=== PATIENT | male | born 1980 | race Caucasian/White ===

== ENCOUNTER 2025-01-08 09:40 | Inpatient (IN) | payer OTHER, SELFPAY ==
--- NOTE | ~2025-01-08 | XR_ITS ---
EXAMINATION: XR abdomen gastric tube insert DATE: 01/09/2025 09:59 INDICATION: Nasogastric tube placement TECHNIQUE: A supine view of the abdomen and lower chest was obtained for evaluation of feeding tube placement. COMPARISON: None. FINDINGS: Nasogastric tube tip in proximal side port in the body the stomach. Visualized portion of the lungs a re clear. Heart size is normal. IMPRESSION: 1. No gastric tube in stomach. Reviewed, dictated and finalized at location A.
--- NOTE | ~2025-01-08 | CT_ITS ---
CT abdomen pelvis w con Ordering provider: Makenna Ray MD History: 44 years Male with . LLQ pain, n/v . Comparison: September 21, 2009 Technique: CT abdomen and pelvis with IV and without oral contrast. Automated exposure control and it erative reconstruction technique were employed. The dose-length product was 353.79 mGy-cm. 100 mL Omn ipaque 350 was given IV. Findings: VISUALIZED LOWER CHEST: Normal. UPPER ABDOMINAL ORGANS: Liver: Fat infiltration. Hepatomegaly. Gallbladder: Normal. Spleen: Normal. Stomach/duodenum: Normal. Pancreas: Normal. Adrenals: Surrounding fat stranding is seen around the body and tail of the pancreas with fluid in th e left paracolic gutter. Kidneys: Normal. PELVIC ORGANS: The bladder is underfilled with thickened wall. Evaluation for cystitis advised. BOWEL AND MESENTERY: Colon: No definite evidence of diverticulitis. No evidence of appendicitis.. Small Bowel: Slightly dilated jejunal loops.. No definite obstruction. Peritoneum/mesentery: No free air. Minimal free fluid seen in the area of the tail of the pancreas, l eft paracolic gutter and around the spleen. No mesenteric lymphadenopathy. RETROPERITONEUM: Mild atheromatous disease of the abdominal aorta. No retroperitoneal lymphadenopat hy. MUSCULOSKELETAL: Superficial soft tissues: The superficial soft tissues are normal. Bones: Age appropriate degenerative changes of the spine. Left sacroiliitis. IMPRESSION: 1. Pancreatitis involving the body and tail of the pancreas. Surrounding fat stranding and minimal f luid is noted. 2. Slightly dilated jejunal loops. Follow-up advised. 3. No evidence of appendicitis or diverticulitis. 4. Fat infiltration of the liver. Hepatomegaly. Reviewed, dictated and finalized at location A. IMPRESSION: 1. Pancreatitis involving the body and tail of the pancreas. Surrounding fat s tranding and minimal fluid is noted. 2. Slightly dilated jejunal loops. Follow-up advised. 3. No evidence of appendicitis or diverticulitis. 4. Fat infiltration of the liver. Hepatomegaly.
--- NOTE | ~2025-01-08 | US_ITS ---
Limited Abdominal Sonogram: Real-time sonographic imaging of the right upper quadrant was performed. Clinical History: Abnormal LFTs, history of hemachromatosis Findings: The liver appears normal with no evidence of mass lesion or bile duct dilatation. Liver me asures 21.2 cm in length. Main portal vein demonstrates normal direction of flow. The gallbladder is well distended, and appears normal with no evidence of gallstone or wall thickening. The common bile duct measures 6 mm. The visualized pancreas, aorta, and IVC are unremarkable. Right kidney unremarka ble. Impression: Hepatomegaly. Reviewed, dictated and finalized at location . Impression: Hepatomegaly.
[2025-01-08 09:44] VITALS: BP 148/105; PULSE 85; RESP 18; TEMP 36.7; O2SAT 100
[2025-01-08 10:11] LABS: Basophils Percent Auto 0.1 % (0.2-1.2); Hematocrit 47.2 % (42.0-52.0); Hemoglobin 17.2 g/dL (14.0-18.0); Immature Granulocyte Absolute 0.04 K/mm3 (0.00-0.031); Immature Granulocyte Percent A 0.5 % (0-0.5); Lymphocytes Absolute Auto 0.82 K/mm3 (0.9-3.2); Lymphocytes Percent Auto 9.8 % (18.3-44.2); Mean Corpuscular HGB Conc 36.4 g/dl (32-36); Mean Corpuscular Hemoglobin 33.8 pg (26-34); Mean Corpuscular Volume 92.7 fl (80-100); Mean Platelet Volume 10.6 fl (7.4-10.4); Monocytes Absolute Auto 0.5 K/mm3 (0.1-0.6); Monocytes Percent Auto 5.4 % (2.6-8.5); Neutrophils Percent Auto 84.2 % (45.5-73.1); Red Blood Count 5.09 M/mm3 (4.6-6.20); Red Cell Distribution Width 12.7 % (11.5-14.5); White Blood Count 8.4 K/mm3 (4.5-10.0)
[2025-01-08 10:14] LABS: Platelet Count Result 122 k/mm3 (150-375)
[2025-01-08 10:21] LABS: Add Urine Microscopic? YES; Appearance Urine Clear (Clear); Bacteria Urine None Seen /hpf; Bilirubin Urine 2+ (Negative); Blood Urine Negative (Negative); Color Urine Orange (Yellow); Glucose Urine UA Negative (Negative); Ketones Urine 1+ mg/dL (Negative); Leukocyte Esterase Ur 1+ LEU/UL (Negative); Nitrate Urine Positive (Negative); Protein Urine 1+ mg/dL (Negative); RBC Urine 0-2 /hpf (0-2); Specific Grav Ur 1.017 (1.001-1.035); Squamous Epithelial Cell Urine Occasional /hpf (Few); WBC Urine 0-5 /hpf (0-3); pH Urine 6.5 (5.0-9.0)
[2025-01-08] MEDS: MORPHINE SULFATE (*CRX) 4 MG/ML INJ IV PUSH ×5 (10:25→21:08)
[2025-01-08] MEDS: ONDANSETRON INJ 4 MG/2 ML VIAL IV PUSH ×2 (10:25→14:05)
[2025-01-08] MEDS: LACTATED RINGERS 1,000 ML 999 ML IV CONT (10:26)
[2025-01-08] MEDS: PANTOPRAZOLE SODIUM IV 40 MG VIAL IV PUSH (10:26)
[2025-01-08 10:39] LABS: Alanine Aminotransferase 398 U/L (6-50); Albumin Level 3.8 g/dL (3.5-5.1); Blood Urea Nitrogen 7 mg/dL (9-20); Chloride 99 mmol/L (98-107); Estimated CRCL calculation 96 ml/min; Estimated Glomerular Filt Rate > 60; Glucose 125 mg/dL (65-110); Lipase 867 U/L (23-300); Potassium 3.2 mmol/L (3.4-5.0); Total Protein 7.8 g/dL (6.3-8.2)
[2025-01-08 10:40] LABS: Alkaline Phosphatase 138 U/L (38-126); Anion Gap 13 mmol/L (4-12); Bilirubin,Total 5.3 mg/dL (0.2-1.3); Calcium 8.2 mg/dL (8.4-10.2); Carbon Dioxide 19 mmol/L (22-30); Sodium 131 mmol/L (137-145)
[2025-01-08 11:19] LABS: Aspartate Amino Transferase 1076 U/L (17-59)
[2025-01-08] MEDS: POTASSIUM CHLORIDE 20 MEQ PACKET (FOR LIQUID) 40 MEQ PO (12:06)
[2025-01-08 12:46] VITALS: BP 158/111; PULSE 54; RESP 18; O2SAT 100
--- NOTE | 2025-01-08 13:29 | ED_ITS ---
HPI - Nausea/Vomiting/Diarrhea General Chief complaint: Nausea/Vomiting/Diarrhea Stated complaint: sick since saturday nv Time Seen by Provider: 01/08/25 09:43 History of Present Illness HPI Narrative: Under last few days patient has feeling under the weather, then started becoming nauseous, and then started having epigastric/left-sided abdominal pain. Does have history of hemochromatosis, as well as heavy alcohol use, drinking a pt daily, last drink was Saturday, does not go into withdrawal. Related Data Allergies Allergy/AdvReac Type Severity Reaction Status Date / Time No Known Allergies Allergy Verified 01/08/25 10:53 Review of Systems 2 Review of Systems: All systems reviewed & are unremarkable except as noted in HPI and below Exam 2 Narrative: EXAMINATION OF ORGAN SYSTEMS/BODY AREAS: Constitutional: Vital signs per nursing GENERAL:[No acute distress, non-toxic appearing.] HEAD: Normal with no signs of head trauma. EYES: EOMI, conjunctiva normal ENT: Hearing grossly intact LUNGS: Nonlabored breathing. HEART: [Regular rate and rhythm] ABD: [Soft], some tenderness palpation epigastric/left abdomen EXT: Normal range of motion SKIN: [No rashes or lesions.] NEURO: [Alert and oriented x 3. No gross focal sensory or strength deficits.] PSYCH: Normal affect Course Vital Signs Vital signs: Vital Signs Temperature 98.0 F 01/08/25 09:44 Pulse Rate 85 01/08/25 09:44 Respiratory Rate 18 01/08/25 09:44 Blood Pressure 148/105 H 01/08/25 09:44 Pulse Oximetry 100 01/08/25 09:44 Oxygen Delivery Room Air 01/08/25 09:44 Temperature 98.0 F 01/08/25 09:44 Pulse Rate 54 L 01/08/25 12:46 Respiratory Rate 18 01/08/25 12:46 Blood Pressure 158/111 H 01/08/25 12:46 Pulse Oximetry 100 01/08/25 12:46 Oxygen Delivery Room Air 01/08/25 09:44 MDM - Nausea/Vomiting/Diarrhea MDM Narrative Medical decision making narrative: Electronic medical record was reviewed. Patient presented to the ED with complaint of [abdominal pain worse on the left side and vomiting]. Vitals [were within acceptable limits]. Physical exam revealed and tenderness epigastric abdomen. Based on the patient's history and physical exam, my differential includes but is not limited to [gastritis, gastroenteritis, cholecystitis, pancreatitis, diverticulitis]. [IV access was established by nursing staff. Patient was given zofran, Protonix, morphine]. CBC, BMP, lipase, LFTs, bilirubin and alk phos were obtained. Labs were pertinent for lipase 867, AST 1076, ALT 398, bili 5.3, discussed with patient he tells me that his LFTs are generally elevated from the alcohol use. [Decision was made to obtain a CT-abdomen to evaluate for acute abdominal process. CT- abdomen per radiology interpretation showing pancreatitis.] Fatty liver findings on the CT and ultrasound. Discussed with patient, he is still having some abdominal pain and preferred to be admitted, discussed with hospitalist who would like to have GI consult, discussed with Dr. Moya who was agreeable to consult on patient as needed and agrees most likely alcoholic pancreatitis. Lab Data 01/08/25 09:56 01/08/25 09:56 Labs: Lab Results 01/08/25 Range/Units 09:56 WBC 8.4 (4.5-10.0) K/mm3 RBC 5.09 (4.6-6.20) M/mm3 Hgb 17.2 (14.0-18.0) g/dL Hct 47.2 (42.0-52.0) % MCV 92.7 (80-100) fl MCH 33.8 (26-34) pg MCHC 36.4 H (32-36) g/dl RDW 12.7 (11.5-14.5) % Plt Count 122 L (150-375) k/mm3 MPV 10.6 H (7.4-10.4) fl Immature Gran % (Auto) 0.5 (0-0.5) % Neut % (Auto) 84.2 H (45.5-73.1) % Lymph % (Auto) 9.8 L (18.3-44.2) % Villalba % (Auto) 5.4 (2.6-8.5) % Eos % (Auto) 0.0 (0-4.4) % Baso % (Auto) 0.1 L (0.2-1.2) % Lymph # (Auto) 0.82 L (0.9-3.2) K/mm3 Villalba # (Auto) 0.5 (0.1-0.6) K/mm3 Eos # (Auto) 0.0 (0-0.3) K/mm3 Baso # (Auto) 0.0 (0.0-0.1) K/mm3 Abs Immat Gran (auto) 0.04 H (0.00-0.031) K/mm3 Absolute Neuts (auto) 7.0 H (1.3-6.7) K/mm3 Absolute Nucleated RBC 0.000 (0.0-0.012) K/mm3 Nucleated RBC % 0.0 (0.0-0.2) % % Immature Plt Fraction 8.0 (0.9-11.2) % Sodium 131 L (137-145) mmol/L Potassium 3.2 L (3.4-5.0) mmol/L Chloride 99 (98-107) mmol/L Carbon Dioxide 19 L (22-30) mmol/L Anion Gap 13 H (4-12) mmol/L BUN 7 L (9-20) mg/dL Creatinine 0.90 (0.7-1.3) mg/dL Estim Creat Clear Calc 96 ml/min Estimated GFR > 60 (59 - ) Glucose 125 H (65-110) mg/dL Calcium 8.2 L (8.4-10.2) mg/dL Total Bilirubin 5.3 H (0.2-1.3) mg/dL AST 1076 H (17-59) U/L ALT 398 H (6-50) U/L Alkaline Phosphatase 138 H (38-126) U/L Total Protein 7.8 (6.3-8.2) g/dL Albumin 3.8 (3.5-5.1) g/dL Lipase 867 H (23-300) U/L Urine Color [place] H (Yellow) Urine Appearance Clear (Clear) Urine pH 6.5 (5.0-9.0) Ur Specific St[place] 1.017 (1.001-1.035) Urine Protein 1+ H (Negative) mg/dL Urine Glucose (UA) Negative (Negative) mg/dL Urine Ketones 1+ H (Negative) mg/dL Ur Blood (Man) Negative (Negative) Urine Nitrate Positive H (Negative) Urine Bilirubin 2+ H (Negative) Urine Urobilinogen 2.0 H (<2.0) mg/dL Leukocyte Esterase Rfl 1+ H (Negative) ALEXIS/UL Urine RBC 0-2 (0-2) /hpf Urine WBC 0-5 (0-3) /hpf Ur Squamous Epith Cells Occasional (Few) /hpf Urine Bacteria None seen /hpf Urine Casts 3-5 Discharge Plan Discharge Clinical Impression: Acute alcoholic pancreatitis, Abnormal LFTs Patient Disposition: Still a Patient Condition: Serious Patient Language: Nauruan Follow-up/Referrals: Blayne,MD Garrett [Primary Care Provider] -
[2025-01-08 13:50] LABS: INR 0.8; Prothrombin Time 11.3 Seconds (11.1-14.7)
[2025-01-08 13:51] LABS: Partial Thromboplastin Time 32.9 Seconds (22.3-36.8)
[2025-01-08] MEDS: LACTATED RINGERS 1,000 ML 125 ML IV CONT (14:06)
[2025-01-08 14:11] VITALS: BP 150/109; PULSE 83; RESP 16; O2SAT 97
--- NOTE | 2025-01-08 14:18 | P.HP_ITS ---
H&P: HPI History of Present Illness Date/Time: 01/08/25 14:18 Chief Complaint: Abd pain Narrative: 44 yo male with PMH of HTN, GERD and alcohol abuse who presented to the ER on account of abd pain. Described as sharp upper abdominal region, 10/10 intensity, no radiation but associated with profuse vomiting the past 3 days. Noted lightheadedness but denies any Chest pain, SOB, dysuria, and LOC. Er eval notable for BP 148/105, labs notable for AST 1076, ALT 398, Bili 5.3, and Lipase 867, CT AP showed pancreatitis involving the body and tail of the pancreas and fat infiltrationi of the liver. INR 0.8. GI was consulted prior to admission Review of Systems Review of Systems: All other systems were reviewed and negative except as noted in the HPI above Meds Home Medications and Allergies Home Medications ?Medication ?Instructions ?Recorded ?Confirmed ?Type carvedilol 12.5 mg tablet 12.5 mg PO Q12H 01/08/25 01/08/25 History omeprazole magnesium 20 mg 20 mg PO ONCE PRN acid reflux 01/08/25 01/08/25 History capsule,delayed release (Acid Graphic User Interface Designer (omeprazole)) Allergies Allergy/AdvReac Type Severity Reaction Status Date / Time No Known Allergies Allergy Verified 01/08/25 13:58 Vital Signs Vital Signs - 24 hr 01/08/25 09:44 01/08/25 12:46 01/08/25 14:11 Temperature 98.0 F Pulse Rate 85 54 L 83 Respiratory Rate 18 18 16 Blood Pressure 148/105 H 158/111 H 150/109 H Pulse Oximetry 100 100 97 Oxygen Delivery Room Air Exam Narrative: General: alert and comfortable Eyes: EOMI, PERRLA ENNT External ears normal, Neck is supple, no masses, Respiratory systems: Clear to auscultation Cardiovascular S1, S2, normal rhythm, no murmur, rub, or gallop; no thrill or palpable murmurs on palpation. Gastrointestinal: soft, tenderness in epigastric, RUQ and LUQ, and non-distended abdomen with no masses; BS present Skin: no rash, lesions, ulcerations, subcutaneous nodules or induration Musculoskeletal: no abnormality and no tenderness, normal ROM Neurologic: Alert and oriented x3, non focal Mental Status Exam: normal affect H&P: Results Labs Labs: Short CBC 01/08/25 Range/Units 09:56 WBC 8.4 (4.5-10.0) K/mm3 Hgb 17.2 (14.0-18.0) g/dL Hct 47.2 (42.0-52.0) % Plt Count 122 L (150-375) k/mm3 BMP 01/08/25 09:56 Sodium 131 L Potassium 3.2 L Chloride 99 Carbon Dioxide 19 L BUN 7 L Creatinine 0.90 Glucose 125 H Calcium 8.2 L Liver Function 01/08/25 Range/Units 09:56 Total Bilirubin 5.3 H (0.2-1.3) mg/dL AST 1076 H (17-59) U/L ALT 398 H (6-50) U/L Alkaline Phosphatase 138 H (38-126) U/L Albumin 3.8 (3.5-5.1) g/dL Urine 01/08/25 Range/Units 09:56 Urine Color [place] H (Yellow) Urine Appearance Clear (Clear) Urine pH 6.5 (5.0-9.0) Ur Specific [place] 1.017 (1.001-1.035) Urine Protein 1+ H (Negative) mg/dL Urine Glucose (UA) Negative (Negative) mg/dL Assessment and Plan Assessment and plan (1) Acute alcoholic pancreatitis: Code(s): K85.20 - Alcohol induced acute pancreatitis without necrosis or infection Status: Acute (2) Abnormal LFTs: Code(s): R79.89 - Other specified abnormal findings of blood chemistry Status: Acute Plan Acute pancreatitis likely from alcohol abuse Presented with abd pain and vomiting Lipase 867 CT AP showed pancreatitis, fatty liver no CBD dilation US liver showed hepatomegaly Lipid pnael pending Continue PRN pain control NPO, IVF and monitor Alcoholic hepatitis patient noted he drinks updwards of 6 drinks every day and last alcohol drink was 5 days ago AST 1076, and ALT 398, bili 5.3 Maddrey discriminant score less than 30 continue IVF, avoid tylenol and monitor Alcohol abuse LAD 5 days ago encourage to quit alcohol monitor Hypertension with elevated blood pressure On Coreg PRN hydralazinie Adjust with clinical course GERD continue protonix DVT prophylaxis on Sq Lovenox Full code SDM: Titi Streeter Hospitalist MIPS Advance Care Plan I have confirmed that the patient's Advanced Care Plan is present, code status is documented, or surrogate decision maker is listed in patient medical record.: Yes Medication Reconciliation I have utilized all available resources to obtain, update and review the patients current medications (includes all prescriptions, OTC, herbals, cannabis, and nutritional supplements).: Yes
[2025-01-08 14:31] VITALS: BMI 24.9
--- NOTE | 2025-01-08 14:40 | ADMGEN ---
This patient, Yusuf Taylor, was admitted to Medical Room 246-. Patient/family oriented to hospital policies and general routines including ID bracelet, bed and alarms, visiting hours, pain management, procedures, bathroom and other care routines, personal items, smoking policy, room service/diet, and visiting hours. Information on how to activate the Rapid Response Team has been discussed. Patient/Family are encouraged to report perceived risks to care and to ask questions if they do not understand what they are told or what they should do.
[2025-01-08 15:00] VITALS: BP 143/100; PULSE 78; RESP 20; TEMP 36.9; O2SAT 98
[2025-01-08] MEDS: THIAMINE HCL INJ 100 MG, FOLIC ACID INJ 1 MG, MAGNESIUM SULFATE INJ 1 GM, MULTIVITAMINS... IV CONT (16:24)
[2025-01-08 21:00] VITALS: BP 146/98; PULSE 88; RESP 20; TEMP 36.9; O2SAT 98
[2025-01-08 21:09] VITALS: PULSE 88
[2025-01-08] MEDS: carvediloL 12.5 MG TABLET PO (21:09)
[2025-01-09] VITALS (28 sets, daily range): BP systolic 94–146; BP diastolic 72–104; PULSE 71–114; RESP 13–24; TEMP 37.1–38.9; O2SAT 94–99
[2025-01-09] MEDS: MORPHINE SULFATE (*CRX) 4 MG/ML INJ IV PUSH ×5 (00:02→21:03)
[2025-01-09] MEDS: NICOTINE (*PBKC) 14 MG PATCH 1 PATCH TRANSDERM ×2 (00:08→09:26)
[2025-01-09] MEDS: SODIUM CHLORIDE 0.9% IV 1,000 ML 75 ML IV CONT (02:21)
[2025-01-09 06:03] LABS: Basophils Percent Auto 0.2 % (0.2-1.2); Eosinophils Percent Auto 0.3 % (0-4.4); Hematocrit 41.8 % (42.0-52.0); Hemoglobin 14.7 g/dL (14.0-18.0); Immature Granulocyte Absolute 0.06 K/mm3 (0.00-0.031); Immature Granulocyte Percent A 0.6 % (0-0.5); Immature Platelet Fraction Pct 10.6 % (0.9-11.2); Lymphocytes Percent Auto 15.1 % (18.3-44.2); Mean Corpuscular HGB Conc 35.2 g/dl (32-36); Mean Corpuscular Hemoglobin 34.3 pg (26-34); Mean Corpuscular Volume 97.7 fl (80-100); Mean Platelet Volume 11.5 fl (7.4-10.4); Monocytes Absolute Auto 0.7 K/mm3 (0.1-0.6); Monocytes Percent Auto 6.4 % (2.6-8.5); Neutrophils Absolute Auto 8.2 K/mm3 (1.3-6.7); Neutrophils Percent Auto 77.4 % (45.5-73.1); Platelet Count Result 80 k/mm3 (150-375); Red Blood Count 4.28 M/mm3 (4.6-6.20); Red Cell Distribution Width 13.2 % (11.5-14.5); White Blood Count 10.6 K/mm3 (4.5-10.0)
[2025-01-09 06:18] LABS: Alanine Aminotransferase 228 U/L (6-50); Albumin Level 3.4 g/dL (3.5-5.1); Alkaline Phosphatase 101 U/L (38-126); Anion Gap 9 mmol/L (4-12); Aspartate Amino Transferase 389 U/L (17-59); Bilirubin,Total 3.5 mg/dL (0.2-1.3); Blood Urea Nitrogen 7 mg/dL (9-20); Calcium 7.7 mg/dL (8.4-10.2); Carbon Dioxide 28 mmol/L (22-30); Chloride 98 mmol/L (98-107); Cholesterol 113 mg/dL (0-200); Estimated CRCL calculation 81 ml/min; Estimated Glomerular Filt Rate > 60; Glucose 92 mg/dL (65-110); HDL Direct 17 mg/dL; Magnesium 1.4 mg/dL (1.6-2.3); Sodium 135 mmol/L (137-145); Total Protein 6.9 g/dL (6.3-8.2); Triglycerides 366 mg/dL (<150)
[2025-01-09 06:25] LABS: LDL Cholesterol Direct 33 mg/dL
[2025-01-09] MEDS: LORazepam INJ (*CRX) 2 MG/ML VIAL (06:40)
[2025-01-09] MEDS: diazePAM INJ (*CRX) 10 MG/2 ML SYRINGE ×2 (06:46→06:50)
[2025-01-09] MEDS: PHENobarbitaL sodium (*CRX) 130 MG/ML VIAL 250 MG IV PUSH (07:13)
--- NOTE | 2025-01-09 07:26 | PC.NURSE ---
Addendum entered by Dar Ybarra RN 01/09/25 07:33: Pt stated last ETOH use Saturday night, no CIWA or seizure precautions ordered. Pt did not exhibit any S/S of withdrawal prior to onset of seizure. Original Note: Pt (Bibi) called out for help, Pt found with head at feet of bed actively seizing. Rapid Response initiated, pt positioned on left lateral side and nasal canula initiated, Dr Zacarias and critical response team arrived at bedside after about 1-2min. Pt stabilized and transferred to ICU-2
[2025-01-09] MEDS: PHENOBARBITAL SODIUM IVPB (07:37)
[2025-01-09] MEDS: SODIUM CHLORIDE 0.9% IVPB (07:37)
[2025-01-09 07:42] LABS: Glucose Point of Care 155 mg/dl (65-105)
--- NOTE | 2025-01-09 08:22 | P.RRN_ITS ---
Critical Care Event Note Summary Code activated: No Narrative: Rapid response was called this before shift change. Patient's had been in the room with the patient. The patient started having tonic clonic seizure. The patient does not have a history of seizures. Patient evidently drinks alcohol heavily. His was at bedside reported that the patient had his last alcoholic beverage on the . He started having nausea vomiting on the . It took until the before it his could convince him to go to the ER for evaluation. The patient was diagnosed with alcoholic pancreatitis receive 1 L of fluid bolus and was placed on maintenance fluids at 125 mL an hour. The patient received thiamin and folic acid. He was also noted to have an ileus. He was admitted for pain management. And placed on stress ulcer prophylaxis. Some hypokalemia which was treated with oral supplements. The patient had tonic clonic seizure that lasted a couple of minutes. When I arrived at bedside patient had stopped seizing within seconds of me arriving to the room. The patient was lying with his had a head at the foot of the bed. Nursing staff had the patient on his left side. Patient was drooling from the corner of his mouth. He had evidence of tongue trauma with bleeding from the left side of his tongue, he had incontinence of urine. The patient was repositioned in bed and patient was having erratic respirations and did not seem to be protecting his airway. However as were repairing for intubation the patient woke up but was postictal and combative. During the process of trying to administer Ativan the patient's IV was dislodged. Subsequently the patient was placed in four-point restraints and IM diazepam was ordered. The patient required 20 mg of IM diazepam total while he was waiting for Dilantin bolus to arrive from the pharmacy. Patient initially got 250 mg of Dilantin due to fast availability and subsequently an additional 500 mg was ordered for a total bolus of 10 milligram/kilogram dose. The patient was hot to touch and diaphoretic. A Flower catheter was placed due to his critical condition and immobility. Standard UA after catheter placement did demonstrate UTI. Shortly after arriving to the ICU patient was noted to be febrile with a temperature of 100.5. Subsequently a stat blood cultures lactic acid procalcitonin were ordered. Patient was placed on empiric antibiotic therapy with Zosyn. Patient met sepsis criteria with t achycardia, leukocytosis and fever. Assessment: Acute seizure--likely multifactorial due to alcohol withdrawal and combination of lower his seizure threshold with fever due to sepsis and UTI. Patient was treated with IM volume 20 mg total and phenobarbital load. Patient was transferred to the ICU. Care has been handed over to sociocultural anthropology professor. UTI with sepsis--blood cultures and urine cultures have been ordered. Empiric antibiotic therapy with Zosyn. Fluid bolus 30 mL/kilogram isotonic fluids. Will start patient on maintenance IV fluids at 100 50 mL an hour. Continue stress ulcer prophylaxis Hypo magnesemia---4 g magnesium sulfate rider 80 minutes This case had a high probability of a clinically significant, sudden, or life threatening deterioration of this patient's condition which required my full and direct attention, intervention and personal management. Due to a high probability of clinically significant, life threatening deterioration, the patient required my highest level of preparedness to intervene emergently and I personally spent this critical care time directly and personally managing the patient. This critical care time included obtaining a history; examining the patient; pulse oximetry; ordering and review of studies; arranging urgent treatment with development of a management plan; evaluation of patient's response to treatment; frequent reassessment; and discussions with other providers. It was exclusive of separately billable procedures and treating other patients and teaching time. Please see Assessment and Plan section and the rest of the note for further information on patient assessment and treatment. Critical care time: 75 - 104 mins
[2025-01-09 09:04] LABS: Lactic Acid Reflex 1.4 mmol/L (0.7-2.0)
[2025-01-09 09:06] LABS: Lipase 607 U/L (23-300)
[2025-01-09] MEDS: SODIUM CHLORIDE 0.9% IV 1,000 ML 999 ML IV CONT ×2 (09:21→10:30)
[2025-01-09] MEDS: MAGNESIUM SULF 4 GM/WATER100ML 4 GM/100 ML BAG IVPB (09:24)
[2025-01-09] MEDS: FOLIC ACID 1 MG/0.2 ML INJ IV PUSH (09:24)
[2025-01-09] MEDS: PANTOPRAZOLE SODIUM IV 40 MG VIAL IV PUSH (09:26)
--- NOTE | 2025-01-09 09:30 | WPDCNINT ---
Assessment and Plan Assessment and plan (1) Acute alcoholic pancreatitis: Code(s): K85.20 - Alcohol induced acute pancreatitis without necrosis or infection Status: Acute Assessment and Plan: Presented with elevated lipase CT scan IMPRESSION: 1. Pancreatitis involving the body and tail of the pancreas. Surrounding fat stranding and minimal fluid is noted. 2. Slightly dilated jejunal loops. Follow-up advised. 3. No evidence of appendicitis or diverticulitis. 4. Fat infiltration of the liver. Hepatomegaly. NPO Insert NG tube to low intermittent suction for ileus Pain control Ultrasound CT ruled out any stones GI has been consult Monitor lipase level IV fluid (2) Hypertension: Code(s): I10 - Essential (primary) hypertension Status: Acute Assessment and Plan: Blood pressure medications on hold at this time since blood pressure is in acceptable range. Monitor and adjust accordingly (3) Alcoholic hepatitis: Code(s): K70.10 - Alcoholic hepatitis without ascites Status: Acute Assessment and Plan: Elevated LFTs secondary to alcoholic hepatitis. Levels improving. Monitor (4) Electrolyte abnormality: Code(s): E87.8 - Other disorders of electrolyte and fluid balance, not elsewhere classified Status: Acute Assessment and Plan: Replace low Mag (5) Alcohol withdrawal seizure: Code(s): F10.939 - Alcohol use, unspecified with withdrawal, unspecified; R56.9 - Unspecified convulsions Status: Acute Assessment and Plan: History of heavy alcohol intake for long time now presented with alcohol withdrawal and alcohol withdrawal seizure IV fluids Patient received phenobarb and Valium End-tidal CO2 monitoring and monitoring of respiratory status in ICU CIWA score monitor P.r.n. added IV IV thiamine folic acid NPO (6) Alcohol withdrawal: Code(s): F10.939 - Alcohol use, unspecified with withdrawal, unspecified Status: Acute Assessment and Plan: See above (7) UTI (urinary tract infection): Code(s): N39.0 - Urinary tract infection, site not specified Status: Acute Assessment and Plan: UA abnormal Blood and urine culture Patient is currently on IV Zosyn which 0 continue for now (8) Ileus: Code(s): K56.7 - Ileus, unspecified Status: Acute Assessment and Plan: Bowel sounds are present but decreased on exam. CT scan suggest ileus likely from pancreatitis. Patient also presented with nausea vomiting We with current to encephalopathy I will place an NG tube to low intermittent suction Plan DVT prophylaxis -Lovenox Stress ulcer prophylaxis -PPI Nutrition - NPO, insert NG tube Code Status - Full Code Patient's and [id number] updated at bedside Total Critical Care Time - 40 minutes Due to a high probability of clinically significant, life threatening deterioration, the patient required my highest level of preparedness to intervene emergently and I personally spent this critical care time directly and personally managing the patient. This critical care time included obtaining a history; examining the patient; pulse oximetry; ordering and review of studies; arranging urgent treatment with development of a management plan; evaluation of patient's response to treatment; frequent reassessment; and discussions with other providers. It was exclusive of separately billable procedures and treating other patients and teaching time. Please see Assessment and Plan section and the rest of the note for further information on patient assessment and treatment Ela Teacher Consult Note Consult date: 01/09/25 Reason for consult: Alcohol withdrawal, alcohol withdrawal seizures, alcoholic pancreatitis HPI: Yusuf Taylor is a 44 year old male with past medical history of heavy alcohol use, recently diagnosed hypertension presented yesterday to ER with chief complaint of nausea vomiting. At this time I have obtained history from patient's was at bedside and she told me the patient has been drinking a pt of vodka every day for many years. He also smokes 1 pack cigarettes and also smokes marijuana. She is unaware of any other drug use. She states the last week patient started having some discomfort and went to [facility] ER where he was found to be having high blood pressure and he was started high blood pressure medications and was told to follow-up with For a stress test. Over the weekend he drank heavily and on Saturday he started feeling sick with nausea vomiting abdominal pain. The symptoms have continued and his last drink was on Saturday. She states the patient was also constipated with no diarrhea no hematochezia melena. He did not report any shortness of breath fevers chest pain cough. She states patient was having belly pain and was having nausea with vomiting and was unable to keep anything down and did not take any of his blood pressure medication.. Yesterday in the ER patient had elevated LFTs and lipase and CT scan confirmed pancreatitis. He was admitted to IMU. Overnight patient had a generalized tonic clonic seizure and was found to be in alcohol withdrawal. He was given Valium, phenobarb and transferred to ICU. At this time patient is fairly sedated physically restrained and unable to provide any meaningful history and exam is limited. Review of Systems Review of Systems: ROS unobtainable: Yes unobtainable due to medical condition and unobtainable due to mental status [facility] Past Medical History Medical History Hypertension Smoking history Alcohol abuse Social History Social History Smoking packs per day: 1 Smoking cigarettes per day: 20.0 Years smoked: 25 Smoking pack-years: 25.00 Smoking status: Current every day smoker Tobacco type: cigarettes Alcohol intake: current Drinks per week: 30 Substance use: never Do You Feel Safe in your Home?: Yes Lack of Transportation: No Lack of Food: Never True Current Housing: I Have Housing Concerned About Future Housing: No Difficulty Paying Gas/Electric Bills: No Difficulty Paying for Meds: No Currently Unemployed: No Education: Bachelor's Degree Difficulty w/ Childcare or Family Care: No Spiritual care concerns: No Meds Home Medications and Allergies Home Medications ?Medication ?Instructions ?Recorded ?Confirmed ?Type carvedilol 12.5 mg tablet 12.5 mg PO Q12H 01/08/25 01/08/25 History omeprazole magnesium 20 mg 20 mg PO ONCE PRN acid reflux 01/08/25 01/08/25 History capsule,delayed release (Acid Actuarial Analyst (omeprazole)) albuterol sulfate 90 mcg/actuation 1 inh inhalation QID PRN 01/09/25 01/09/25 History aerosol inhaler bronchospasm Allergies Allergy/AdvReac Type Severity Reaction Status Date / Time No Known Allergies Allergy Verified 01/08/25 13:58 Vital Signs Vital Signs - 24 hr 01/08/25 09:44 01/08/25 12:46 01/08/25 14:11 Temperature 36.7 C Pulse Rate 85 54 L 83 Respiratory Rate 18 18 16 Blood Pressure 148/105 H 158/111 H 150/109 H Pulse Oximetry 100 100 97 Oxygen Delivery Room Air 01/08/25 14:30 01/08/25 15:00 01/08/25 20:00 Temperature 36.9 C Pulse Rate 78 Respiratory Rate 20 Blood Pressure 143/100 H Pulse Oximetry 98 Oxygen Delivery Room Air Room Air 01/08/25 21:00 01/08/25 21:09 01/09/25 05:48 Temperature 36.9 C 37.1 C Pulse Rate 88 88 88 Respiratory Rate 20 18 Blood Pressure 146/98 H 105/72 Pulse Oximetry 98 97 Oxygen Delivery 01/09/25 07:50 Temperature 38.1 C H Pulse Rate 105 H Respiratory Rate 24 H Blood Pressure 100/73 Pulse Oximetry 96 Oxygen Delivery Exam Narrative: General: Pt is sedated physically restrained Lungs/Chest: Trachea central Clear BS B/L, No crackles or wheezing and tidal CO2 monitor on the nose. Cardiac: RRR. Normal S1 S2. No murmurs Circulation: Pedal pulses are intact and symmetrical. Abdomen: Present bowel sounds.. Soft. NT. ND. Extremities: No clubbing, cyanosis or edema. Warm : Flower in place Neurologic: Sedated, grimaces on sternal rub, withdraws to pain PERRL Skin: No Rash Results Labs 01/09/25 05:33 01/09/25 05:33 Labs: Short CBC 01/08/25 01/09/25 Range/Units 09:56 05:33 WBC 8.4 10.6 H (4.5-10.0) K/mm3 Hgb 17.2 14.7 (14.0-18.0) g/dL Hct 47.2 41.8 L (42.0-52.0) % Plt Count 122 L 80 L (150-375) k/mm3 BMP 01/08/25 01/09/25 09:56 05:33 Sodium 131 L 135 L Potassium 3.2 L 4.0 Chloride 99 98 Carbon Dioxide 19 L 28 BUN 7 L 7 L Creatinine 0.90 1.08 Glucose 125 H 92 Calcium 8.2 L 7.7 L Liver Function 01/08/25 01/09/25 Range/Units 09:56 05:33 Total Bilirubin 5.3 H 3.5 H (0.2-1.3) mg/dL AST 1076 H 389 H (17-59) U/L ALT 398 H 228 H (6-50) U/L Alkaline Phosphatase 138 H 101 (38-126) U/L Albumin 3.8 3.4 L (3.5-5.1) g/dL Urine 01/08/25 Range/Units 09:56 Urine Color [place] H (Yellow) Urine Appearance Clear (Clear) Urine pH 6.5 (5.0-9.0) Ur Specific [place] 1.017 (1.001-1.035) Urine Protein 1+ H (Negative) mg/dL Urine Glucose (UA) Negative (Negative) mg/dL
[2025-01-09 10:07] LABS: Procalcitonin 0.2 ng/mL
[2025-01-09] MEDS: LACTATED RINGERS 1,000 ML 125 ML IV CONT ×2 (11:36→19:51)
[2025-01-09] MEDS: PIPERACILLIN/TAZ 4.5G/NS 100ML 4.5 GM/100 ML BAG IVPB ×3 (11:36→20:47)
[2025-01-09 11:46] LABS: Glucose Point of Care 115 mg/dl (65-105)
[2025-01-09] MEDS: THIAMINE HCL 200 MG/2 ML VIAL 100 MG IV PUSH (12:12)
[2025-01-09 15:21] LABS: MRSA (PCR) NOT DETECTED (NOT DETECTE)
--- NOTE | 2025-01-09 15:43 | P.CONGI_ITS ---
Assessment and Plan Assessment and plan (1) Alcoholic hepatitis: Code(s): K70.10 - Alcoholic hepatitis without ascites Status: Acute Assessment and Plan: supportive now npo status because pancreatitis and possible ileus discriminant function is low, no indication for steroids (2) Abnormal LFTs: Code(s): R79.89 - Other specified abnormal findings of blood chemistry Status: Acute Assessment and Plan: combination of alcoholic pancreatitis and hepatitis will check hepatitis serology (3) Acute alcoholic pancreatitis: Code(s): K85.20 - Alcohol induced acute pancreatitis without necrosis or infection Status: Acute Assessment and Plan: s/p fluids, hgb down to 14 from 17 normal renal function and bun (4) Ileus: Code(s): K56.7 - Ileus, unspecified Status: Acute (5) Alcohol withdrawal seizure: Code(s): F10.939 - Alcohol use, unspecified with withdrawal, unspecified; R56.9 - Unspecified convulsions Status: Acute Assessment and Plan: on sedation DT management in icu GI Consult Note Consult date/time: 01/09/25 15:43 Reason for consult: alcoholic hepatitis HPI: Yusuf Taylor is a 44 year old male with past medical history of heavy alcohol use, recently diagnosed hypertension presented to the ER with chief complaint of nausea vomiting. History is obtained from records and also brother who is at bedside (patient is confused). He is an alcoholic for over 15 years, normally a pt of vodka every day. He also smokes 1 pack cigarettes and also smokes marijuana. Last week he went to [facility] ER where he was found to be having high blood pressure but he refused to stay in the hospital. Here admitted after nausea, vomiting and abdominal pain. ER noted elevated LFTs and lipase and CT scan confirmed pancreatitis. He was admitted to IMU but overnight patient had a generalized tonic clonic seizure and was found to be in alcohol withdrawal. He is comfortable now in icu. Review of Systems 2 Review of Systems: ROS unobtainable: Yes unobtainable due to mental status PMF[facility] Past Medical History Medical History Hypertension Smoking history Alcohol abuse Social History Social History Smoking packs per day: 1 Smoking cigarettes per day: 20.0 Years smoked: 25 Smoking pack-years: 25.00 Smoking status: Current every day smoker Tobacco type: cigarettes Alcohol intake: current Drinks per week: 30 Substance use: never Do You Feel Safe in your Home?: Yes Lack of Transportation: No Lack of Food: Never True Current Housing: I Have Housing Concerned About Future Housing: No Difficulty Paying Gas/Electric Bills: No Difficulty Paying for Meds: No Currently Unemployed: No Education: Bachelor's Degree Difficulty w/ Childcare or Family Care: No Spiritual care concerns: No Meds Home Medications and Allergies Home Medications ?Medication ?Instructions ?Recorded ?Confirmed ?Type carvedilol 12.5 mg tablet 12.5 mg PO Q12H 01/08/25 01/08/25 History omeprazole magnesium 20 mg 20 mg PO ONCE PRN acid reflux 01/08/25 01/08/25 History capsule,delayed release (Acid Enterprise Data Architect (omeprazole)) albuterol sulfate 90 mcg/actuation 1 inh inhalation QID PRN 01/09/25 01/09/25 History aerosol inhaler bronchospasm Allergies Allergy/AdvReac Type Severity Reaction Status Date / Time No Known Allergies Allergy Verified 01/08/25 13:58 Vital Signs Vital Signs - 24 hr 01/08/25 20:00 01/08/25 21:00 01/08/25 21:09 Temperature 98.5 F Pulse Rate 88 88 Respiratory Rate 20 Blood Pressure 146/98 H Pulse Oximetry 98 Oxygen Delivery Room Air Oxygen Flow Rate 01/09/25 05:48 01/09/25 06:36 01/09/25 07:15 Temperature 98.7 F Pulse Rate 88 114 H Respiratory Rate 18 21 H Blood Pressure 105/72 109/82 Pulse Oximetry 97 95 Oxygen Delivery Nasal Cannula Oxygen Flow Rate 2 01/09/25 07:30 01/09/25 07:45 01/09/25 07:50 Temperature 100.5 F H Pulse Rate 101 H 104 H 105 H Respiratory Rate 17 17 24 H Blood Pressure 104/76 100/73 100/73 Pulse Oximetry 95 96 Oxygen Delivery Oxygen Flow Rate 01/09/25 08:00 01/09/25 08:00 01/09/25 08:00 Temperature Pulse Rate 103 H 103 H Respiratory Rate 17 Blood Pressure 94/73 L Pulse Oximetry 98 Oxygen Delivery Nasal Cannula Oxygen Flow Rate 2 01/09/25 08:30 01/09/25 09:00 01/09/25 09:11 Temperature 102.0 F H Pulse Rate 99 98 Respiratory Rate 15 15 16 Blood Pressure 104/73 98/74 L Pulse Oximetry 96 Oxygen Delivery Oxygen Flow Rate 01/09/25 09:15 01/09/25 09:16 01/09/25 09:30 Temperature 101.9 F H 101.9 F H 101.8 F H Pulse Rate 96 96 91 Respiratory Rate 16 16 16 Blood Pressure 99/76 L 103/75 Pulse Oximetry 96 96 98 Oxygen Delivery Oxygen Flow Rate 01/09/25 09:31 01/09/25 09:45 01/09/25 09:46 Temperature 101.8 F H 101.6 F H 101.6 F H Pulse Rate 92 88 89 Respiratory Rate 16 14 14 Blood Pressure 117/89 Pulse Oximetry 97 98 99 Oxygen Delivery Oxygen Flow Rate 01/09/25 10:00 01/09/25 10:00 01/09/25 10:04 Temperature 101.4 F H 101.3 F H Pulse Rate 90 86 87 Respiratory Rate 13 14 Blood Pressure 118/84 Pulse Oximetry 97 98 Oxygen Delivery Oxygen Flow Rate 01/09/25 10:30 01/09/25 11:52 01/09/25 12:00 Temperature 101.2 F H 100.7 F H Pulse Rate 87 81 Respiratory Rate 14 18 Blood Pressure 117/85 122/89 Pulse Oximetry 99 98 98 Oxygen Delivery Nasal Cannula Oxygen Flow Rate 2 01/09/25 12:00 01/09/25 13:47 01/09/25 14:00 Temperature Pulse Rate 83 81 Respiratory Rate 20 Blood Pressure 124/91 H Pulse Oximetry 97 99 Oxygen Delivery Nasal Cannula Oxygen Flow Rate 2 Exam 2 Narrative: General: Pt is sedated physically restrained neck: supple Lungs/Chest: No crackles or wheezing Cardiac: RRR. Normal S1 S2. No murmurs Circulation: Pedal pulses are intact and symmetrical. Abdomen: Present bowel sounds.. Soft. NT. ND. Extremities: No clubbing, cyanosis or edema. Warm : Flower in place Neurologic: Sedated, grimaces on sternal rub, withdraws to pain PERRL Skin: No Rash Results Labs 01/09/25 05:33 01/09/25 05:33 Labs: Short CBC 01/09/25 Range/Units 05:33 WBC 10.6 H (4.5-10.0) K/mm3 Hgb 14.7 (14.0-18.0) g/dL Hct 41.8 L (42.0-52.0) % Plt Count 80 L (150-375) k/mm3 BMP 01/09/25 05:33 Sodium 135 L Potassium 4.0 Chloride 98 Carbon Dioxide 28 BUN 7 L Creatinine 1.08 Glucose 92 Calcium 7.7 L Liver Function 01/09/25 Range/Units 05:33 Total Bilirubin 3.5 H (0.2-1.3) mg/dL AST 389 H (17-59) U/L ALT 228 H (6-50) U/L Alkaline Phosphatase 101 (38-126) U/L Albumin 3.4 L (3.5-5.1) g/dL
--- NOTE | 2025-01-09 15:47 | PM.IMPN ---
Progress Note: A&P Assessment and Plan (1) Acute alcoholic pancreatitis: Code(s): K85.20 - Alcohol induced acute pancreatitis without necrosis or infection Status: Acute Assessment and Plan: Presented with elevated lipase CT scan IMPRESSION: 1. Pancreatitis involving the body and tail of the pancreas. Surrounding fat stranding and minimal fluid is noted. 2. Slightly dilated jejunal loops. Follow-up advised. 3. No evidence of appendicitis or diverticulitis. 4. Fat infiltration of the liver. Hepatomegaly. NPO Insert NG tube to low intermittent suction for ileus Pain control GI team on board Monitor lipase level IV fluid (2) Hypertension: Code(s): I10 - Essential (primary) hypertension Status: Acute Assessment and Plan: Blood pressure medications on hold at this time since blood pressure is in acceptable range. Monitor and adjust accordingly (3) Alcoholic hepatitis: Code(s): K70.10 - Alcoholic hepatitis without ascites Status: Acute Assessment and Plan: Elevated LFTs secondary to alcoholic hepatitis. Levels improving. Monitor (4) Electrolyte abnormality: Code(s): E87.8 - Other disorders of electrolyte and fluid balance, not elsewhere classified Status: Acute Assessment and Plan: Replace low Mag as needed (5) Alcohol withdrawal seizure: Code(s): F10.939 - Alcohol use, unspecified with withdrawal, unspecified; R56.9 - Unspecified convulsions Status: Acute Assessment and Plan: History of heavy alcohol intake for long time now presented with alcohol withdrawal and alcohol withdrawal seizure IV fluids Rapid response was called on 01/09/2025 because of seizure. Patient received phenobarb and Valium and transferred to ICU End-tidal CO2 monitoring and monitoring of respiratory status in ICU CIWA score monitor P.r.n. added IV IV thiamine folic acid NPO (6) Alcohol withdrawal: Code(s): F10.939 - Alcohol use, unspecified with withdrawal, unspecified Status: Acute Assessment and Plan: See above (7) UTI (urinary tract infection): Code(s): N39.0 - Urinary tract infection, site not specified Status: Acute Assessment and Plan: UA abnormal Blood and urine culture Patient is currently on IV Zosyn. continue for now (8) Ileus: Code(s): K56.7 - Ileus, unspecified Status: Acute Assessment and Plan: CT scan suggest ileus likely from pancreatitis. Patient also presented with nausea vomiting We with current to encephalopathy NG tube was placed by ICU team Subjective Date/time seen: 01/09/25 15:47 Interval history: per hPI: 44 yo male with PMH of HTN, GERD and alcohol abuse who presented to the ER on account of abd pain. Described as sharp upper abdominal region, 10/10 intensity, no radiation but associated with profuse vomiting the past 3 days. Noted lightheadedness but denies any Chest pain, SOB, dysuria, and LOC. Er eval notable for BP 148/105, labs notable for AST 1076, ALT 398, Bili 5.3, and Lipase 867, CT AP showed pancreatitis involving the body and tail of the pancreas and fat infiltrationi of the liver. INR 0.8. GI was consulted prior to admission 01/09/25 Patient was seen and examined at bedside. Rapid response was called early AM because of alcohol withdrawal seizure. The patient received Valium on phenobarbital. Patient was transferred to ICU for further management. Patient also has pancreatitis. NG tube in place. Continue with CIWA protocol Continue IV antibiotics for sepsis/UTI. Review of Systems Review of Systems: All other systems were reviewed and negative except as noted in the HPI above ROS unobtainable: Yes unobtainable due to medical condition and unobtainable due to mental status Exam Narrative: General: Pt is sedated physically restrained Lungs/Chest: Trachea central Clear BS B/L, No crackles or wheezing and tidal CO2 monitor on the nose. Cardiac: RRR. Normal S1 S2. No murmurs Circulation: Pedal pulses are intact and symmetrical. Abdomen: Present bowel sounds.. Soft. NT. ND. Extremities: No clubbing, cyanosis or edema. Warm : Flower in place Neurologic: Sedated, grimaces on sternal rub, withdraws to pain PERRL Skin: No Rash Objective Data Vital Signs Vital Signs: Vital Signs - 24 hr 01/08/25 20:00 01/08/25 21:00 01/08/25 21:09 Temperature 98.5 F Pulse Rate 88 88 Respiratory Rate 20 Blood Pressure 146/98 H Pulse Oximetry 98 Oxygen Delivery Room Air Oxygen Flow Rate 01/09/25 05:48 01/09/25 06:36 01/09/25 07:15 Temperature 98.7 F Pulse Rate 88 114 H Respiratory Rate 18 21 H Blood Pressure 105/72 109/82 Pulse Oximetry 97 95 Oxygen Delivery Nasal Cannula Oxygen Flow Rate 2 01/09/25 07:30 01/09/25 07:45 01/09/25 07:50 Temperature 100.5 F H Pulse Rate 101 H 104 H 105 H Respiratory Rate 17 17 24 H Blood Pressure 104/76 100/73 100/73 Pulse Oximetry 95 96 Oxygen Delivery Oxygen Flow Rate 01/09/25 08:00 01/09/25 08:00 01/09/25 08:00 Temperature Pulse Rate 103 H 103 H Respiratory Rate 17 Blood Pressure 94/73 L Pulse Oximetry 98 Oxygen Delivery Nasal Cannula Oxygen Flow Rate 2 01/09/25 08:30 01/09/25 09:00 01/09/25 09:11 Temperature 102.0 F H Pulse Rate 99 98 Respiratory Rate 15 15 16 Blood Pressure 104/73 98/74 L Pulse Oximetry 96 Oxygen Delivery Oxygen Flow Rate 01/09/25 09:15 01/09/25 09:16 01/09/25 09:30 Temperature 101.9 F H 101.9 F H 101.8 F H Pulse Rate 96 96 91 Respiratory Rate 16 16 16 Blood Pressure 99/76 L 103/75 Pulse Oximetry 96 96 98 Oxygen Delivery Oxygen Flow Rate 01/09/25 09:31 01/09/25 09:45 01/09/25 09:46 Temperature 101.8 F H 101.6 F H 101.6 F H Pulse Rate 92 88 89 Respiratory Rate 16 14 14 Blood Pressure 117/89 Pulse Oximetry 97 98 99 Oxygen Delivery Oxygen Flow Rate 01/09/25 10:00 01/09/25 10:00 01/09/25 10:04 Temperature 101.4 F H 101.3 F H Pulse Rate 90 86 87 Respiratory Rate 13 14 Blood Pressure 118/84 Pulse Oximetry 97 98 Oxygen Delivery Oxygen Flow Rate 01/09/25 10:30 01/09/25 11:52 01/09/25 12:00 Temperature 101.2 F H 100.7 F H Pulse Rate 87 81 Respiratory Rate 14 18 Blood Pressure 117/85 122/89 Pulse Oximetry 99 98 98 Oxygen Delivery Nasal Cannula Oxygen Flow Rate 2 01/09/25 12:00 01/09/25 13:47 01/09/25 14:00 Temperature Pulse Rate 83 81 Respiratory Rate 20 Blood Pressure 124/91 H Pulse Oximetry 97 99 Oxygen Delivery Nasal Cannula Oxygen Flow Rate 2 Intake/Output Intake/Output: Intake & Output 01/06/25 01/07/25 01/08/25 01/09/25 23:59 23:59 23:59 23:59 Intake Total 1000 2602.8 Balance 1000 2602.8 Meds/Results Medications: Active Medications Generic Name Dose Route Start Last Admin Trade Name Freq PRN Reason Stop Dose Admin Carvedilol 12.5 mg 01/08/25 21:00 01/08/25 21:09 Carvedilol 12.5 Mg Tablet PO 12.5 mg Q12HR MELLO Administration Enoxaparin Sodium 40 mg 01/09/25 09:00 01/09/25 10:31 Enoxaparin 40 Mg/0.4 Ml Syringe SUB-Q Not Given DAILY MELLO Folic Acid 1 mg 01/09/25 09:00 01/09/25 09:24 Folic Acid 1 Mg/0.2 Ml Inj IV PUSH 1 mg QAM MELLO Administration Hydralazine HCl 10 mg 01/08/25 14:17 Hydralazine Hcl 20 Mg/Ml Vial IV PUSH Q8H PRN Blood Pressure - High Piperacillin Sod/Tazobactam Sod 4.5 gm in 100 mls @ 200 mls/hr 01/09/25 09:00 01/09/25 12:10 Zosyn 4.5 Gm/Ns 100 Ml IVPB Infused Q6H MELLO Infusion Lactated Ringer's 1,000 mls @ 125 mls/hr 01/09/25 08:25 01/09/25 11:36 Lr - Lactated Ringers Iv IV CONT 125 mls/hr .Q8H MELLO Administration Lorazepam 2 mg 01/09/25 08:23 Lorazepam Inj (*Crx) 2 Mg/Ml Vial IV PUSH Q1H PRN CIWA 8-14 Lorazepam 4 mg 01/09/25 08:23 Lorazepam Inj (*Crx) 2 Mg/Ml Vial IV PUSH Q1H PRN CIWA > 15 Morphine Sulfate 4 mg 01/08/25 13:21 01/09/25 03:36 Morphine Sulfate (*Crx) 4 Mg/Ml Inj IV PUSH 4 mg Q2H PRN Administration Pain Rated 7-10 Nicotine 1 patch 01/08/25 23:57 01/09/25 09:26 Nicotine (*Pbkc) 14 Mg Patch TRANSDERM 1 patch DAILY MELLO Administration Ondansetron HCl 4 mg 01/08/25 13:21 01/08/25 14:05 Ondansetron Inj 4 Mg/2 Ml Vial IV PUSH 4 mg Q4H PRN Administration Nausea Pantoprazole Sodium 40 mg 01/09/25 09:00 01/09/25 09:26 Pantoprazole Sodium Iv 40 Mg Vial IV PUSH 40 mg QAM [facility] Administration Pantoprazole Sodium 40 mg 01/08/25 14:26 Pantoprazole 40 Mg Tablet PO ONCE PRN acid reflux Thiamine HCl 100 mg 01/10/25 09:00 Thiamine Hcl 200 Mg/2 Ml Vial IV PUSH QAM [facility] Radiology Results: ITS Impressions Abdomen Ultrasound 01/08/25 11:37 Impression: Hepatomegaly. Abdomen/Pelvis CT 01/08/25 11:51 IMPRESSION: 1. Pancreatitis involving the body and tail of the pancreas. Surrounding fat stranding and minimal fluid is noted. 2. Slightly dilated jejunal loops. Follow-up advised. 3. No evidence of appendicitis or diverticulitis. 4. Fat infiltration of the liver. Hepatomegaly. Abdomen X-Ray 01/09/25 10:02 IMPRESSION: 1. No gastric tube in stomach. ADDENDUM: 01/09/25 1056 CORRECTION: There is a dictation error in the impression section. With the correction capitalized this should read- 1. NASOGASTRIC tube in stomach. Labs Labs: Laboratory Results - last 24 hr 01/09/25 01/09/25 01/09/25 05:33 07:38 08:40 WBC 10.6 H RBC 4.28 L Hgb 14.7 Hct 41.8 L MCV 97.7 D MCH 34.3 H MCHC 35.2 RDW 13.2 Plt Count 80 L MPV 11.5 H Immature Gran % (Auto) 0.6 H Neut % (Auto) 77.4 H Lymph % (Auto) 15.1 L [place] % (Auto) 6.4 Eos % (Auto) 0.3 Baso % (Auto) 0.2 Lymph # (Auto) 1.60 [place] # (Auto) 0.7 H Eos # (Auto) 0.0 Baso # (Auto) 0.0 Abs Immat Gran (auto) 0.06 H Absolute Neuts (auto) 8.2 H Absolute Nucleated RBC 0.000 Nucleated RBC % 0.0 % Immature Plt Fraction 10.6 Sodium 135 L Potassium 4.0 Chloride 98 Carbon Dioxide 28 Anion Gap 9 BUN 7 L Creatinine 1.08 Estim Creat Clear Calc 81 Estimated GFR > 60 Glucose 92 POC Capillary Glucose 155 H Lactic Acid 1.4 Calcium 7.7 L Phosphorus 2.0 L Magnesium 1.4 L Total Bilirubin 3.5 H AST 389 H ALT 228 H Alkaline Phosphatase 101 Total Protein 6.9 Albumin 3.4 L Triglycerides 366 H Cholesterol 113 LDL Cholesterol Direct 33 HDL Direct 17 Lipase 607 H Procalcitonin 0.2 Nasal MRSA (PCR) 01/09/25 01/09/25 11:39 13:49 WBC RBC Hgb Hct MCV MCH MCHC RDW Plt Count MPV Immature Gran % (Auto) Neut % (Auto) Lymph % (Auto) [place] % (Auto) Eos % (Auto) Baso % (Auto) Lymph # (Auto) [place] # (Auto) Eos # (Auto) Baso # (Auto) Abs Immat Gran (auto) Absolute Neuts (auto) Absolute Nucleated RBC Nucleated RBC % % Immature Plt Fraction Sodium Potassium Chloride Carbon Dioxide Anion Gap BUN Creatinine Estim Creat Clear Calc Estimated GFR Glucose POC Capillary Glucose 115 H Lactic Acid Calcium Phosphorus Magnesium Total Bilirubin AST ALT Alkaline Phosphatase Total Protein Albumin Triglycerides Cholesterol LDL Cholesterol Direct HDL Direct Lipase Procalcitonin Nasal MRSA (PCR) Not detected
[2025-01-09] MEDS: ACETAMINOPHEN 325 MG SUPPOSITORY RECTAL (18:30)
[2025-01-09 18:47] LABS: Glucose Point of Care 68 mg/dl (65-105)
[2025-01-09 19:49] LABS: Glucose Point of Care 73 mg/dl (65-105)
[2025-01-09] MEDS: KETOROLAC 30 MG/ML VIAL (*BKC) IV PUSH (19:50)
[2025-01-09] MEDS: DEXTROSE 50% 25 GM/50 ML SYRINGE IV PUSH (19:51)
[2025-01-09 20:59] LABS: Glucose Point of Care 87 mg/dl (65-105)
[2025-01-09 22:03] LABS: Glucose Point of Care 82 mg/dl (65-105)
[2025-01-09 23:05] LABS: Glucose Point of Care 78 mg/dl (65-105)
[2025-01-10] VITALS (17 sets, daily range): BP systolic 116–160; BP diastolic 87–116; PULSE 69–87; RESP 10–18; TEMP 36.5–38.4; O2SAT 90–100
[2025-01-10 00:20] LABS: Glucose Point of Care 74 mg/dl (65-105)
[2025-01-10] MEDS: DEXTROSE 5%/LACTATED RINGERS 1,000 ML 125 ML IV CONT (00:51)
[2025-01-10] MEDS: MORPHINE SULFATE (*CRX) 4 MG/ML INJ IV PUSH ×9 (01:34→22:30)
[2025-01-10 02:08] LABS: Glucose Point of Care 72 mg/dl (65-105)
[2025-01-10 02:12] LABS: Glucose Point of Care 86 mg/dl (65-105)
[2025-01-10 03:10] LABS: Glucose Point of Care 88 mg/dl (65-105)
[2025-01-10] MEDS: PIPERACILLIN/TAZ 4.5G/NS 100ML 4.5 GM/100 ML BAG IVPB ×4 (03:53→20:36)
[2025-01-10 04:15] LABS: Hematocrit 37.8 % (42.0-52.0); Immature Platelet Fraction Pct 10.1 % (0.9-11.2); Mean Corpuscular HGB Conc 34.4 g/dl (32-36); Mean Corpuscular Hemoglobin 33.6 pg (26-34); Mean Corpuscular Volume 97.7 fl (80-100); Mean Platelet Volume 10.5 fl (7.4-10.4); Red Blood Count 3.87 M/mm3 (4.6-6.20); Red Cell Distribution Width 13.3 % (11.5-14.5); White Blood Count 9.1 K/mm3 (4.5-10.0)
[2025-01-10 04:17] LABS: Platelet Count Result 65 k/mm3 (150-375)
[2025-01-10 04:31] LABS: Alanine Aminotransferase 150 U/L (6-50); Albumin Level 3.2 g/dL (3.5-5.1); Alkaline Phosphatase 89 U/L (38-126); Anion Gap 5 mmol/L (4-12); Aspartate Amino Transferase 190 U/L (17-59); Bilirubin,Total 3.4 mg/dL (0.2-1.3); Blood Urea Nitrogen 4 mg/dL (9-20); Calcium 7.2 mg/dL (8.4-10.2); Carbon Dioxide 30 mmol/L (22-30); Chloride 99 mmol/L (98-107); Estimated CRCL calculation 101 ml/min; Estimated Glomerular Filt Rate > 60; Glucose 92 mg/dL (65-110); Magnesium 2.5 mg/dL (1.6-2.3); Phosphorus 2.5 mg/dL (2.5-4.5); Potassium 3.2 mmol/L (3.4-5.0); Sodium 134 mmol/L (137-145); Total Protein 6.6 g/dL (6.3-8.2)
[2025-01-10] MEDS: ACETAMINOPHEN 650 MG SUPPOSITORY RECTAL (05:47)
[2025-01-10 05:56] LABS: Glucose Point of Care 85 mg/dl (65-105)
[2025-01-10] MEDS: KCL 20 MEQ/D5/0.45% SOD CHL 1,000 ML 50 ML IV CONT (08:40)
[2025-01-10] MEDS: carvediloL 12.5 MG TABLET PO ×2 (08:41→20:34)
[2025-01-10] MEDS: chlordiazePOXIDE (*CRX) 10 MG CAPSULE PO ×3 (08:41→22:30)
[2025-01-10] MEDS: POTASSIUM CHLORIDE 20 MEQ PACKET (FOR LIQUID) 40 MEQ FEED TUBE ×2 (08:42→13:48)
[2025-01-10] MEDS: NICOTINE (*PBKC) 14 MG PATCH 1 PATCH TRANSDERM (08:44)
[2025-01-10] MEDS: PANTOPRAZOLE SODIUM IV 40 MG VIAL IV PUSH (08:44)
[2025-01-10] MEDS: THIAMINE HCL 200 MG/2 ML VIAL 100 MG IV PUSH (08:44)
[2025-01-10] MEDS: FOLIC ACID 1 MG/0.2 ML INJ IV PUSH (08:53)
--- NOTE | 2025-01-10 08:57 | WPDINTPN ---
Progress Note: A&P Assessment and Plan (1) Acute alcoholic pancreatitis: Code(s): K85.20 - Alcohol induced acute pancreatitis without necrosis or infection Status: Acute Assessment and Plan: Presented with elevated lipase CT scan IMPRESSION: 1. Pancreatitis involving the body and tail of the pancreas. Surrounding fat stranding and minimal fluid is noted. 2. Slightly dilated jejunal loops. Follow-up advised. 3. No evidence of appendicitis or diverticulitis. 4. Fat infiltration of the liver. Hepatomegaly. Start clear liquid diet Continue NG tube to low intermittent suction for ileus although patient has bowel sounds. If he tolerates liquid diet without any symptoms I will doing the NG tube Pain control with morphine continue Ultrasound CT ruled out any stones GI has been consult Monitor lipase level IV fluid will be continued but rate will be decreased (2) Hypertension: Code(s): I10 - Essential (primary) hypertension Status: Acute Assessment and Plan: Resume Coreg (3) Alcoholic hepatitis: Code(s): K70.10 - Alcoholic hepatitis without ascites Status: Acute Assessment and Plan: Elevated LFTs secondary to alcoholic hepatitis. Levels improving. Monitor (4) Electrolyte abnormality: Code(s): E87.8 - Other disorders of electrolyte and fluid balance, not elsewhere classified Status: Acute Assessment and Plan: Replace low potassium (5) Alcohol withdrawal seizure: Code(s): F10.939 - Alcohol use, unspecified with withdrawal, unspecified; R56.9 - Unspecified convulsions Status: Acute Assessment and Plan: History of heavy alcohol intake for long time now presented with alcohol withdrawal and alcohol withdrawal seizure IV fluids Patient received phenobarb and Valium at the time of admission to ICU. He End-tidal CO2 monitoring and monitoring of respiratory status in ICU He has not required any additional lorazepam. Continue CIWA score monitor Continue p.r.n. lorazepam Start low-dose scheduled Librium IV thiamine folic acid (6) Alcohol withdrawal: Code(s): F10.939 - Alcohol use, unspecified with withdrawal, unspecified Status: Acute Assessment and Plan: See above (7) UTI (urinary tract infection): Code(s): N39.0 - Urinary tract infection, site not specified Status: Acute Assessment and Plan: UA abnormal Blood and urine culture Patient is currently on IV Zosyn which will be continued for now (8) Ileus: Code(s): K56.7 - Ileus, unspecified Status: Acute Assessment and Plan: Bowel sounds are present but decreased on exam. CT scan suggest ileus likely from pancreatitis. Patient also presented with nausea vomiting NG tube is in place and low intermittent suction. If he tolerates p.o. I will remove NG Plan DVT prophylaxis -Lovenox Stress ulcer prophylaxis -PPI Nutrition -clear liquid diet Code Status - Full Code Patient's updated at bedside Subjective Date/time seen: 01/10/25 Overnight events reviewed. Patient did not require any more Ativan overnight he did had the abdominal pain and required morphine. NG tube is in place. He has not had any nausea vomiting. He states his throat is dry and he would like to drink some water and eat some food if possible. He appears calm alert oriented and denies any complaints except abdominal pain. He rates it at a 6/10. He states that taking deep breath hurts. He points towards left side of his abdomen. He has not had any bowel movement overnight. Review of system was also positive for dry cough. All other systems were reviewed and were negative. Vital signs show blood pressure is slightly elevated. Sinus rhythm on the monitor. He is on room air. Review of Systems Review of Systems: All systems reviewed & are unremarkable except as noted in HPI and below (HPI) Exam Narrative: General: Pt is alert awake in no distress Lungs/Chest: Trachea central Clear BS B/L, No crackles or wheezing and tidal CO2 monitor on the nose. Cardiac: RRR. Normal S1 S2. No murmurs Circulation: Pedal pulses are intact and symmetrical. Abdomen: Present bowel sounds.. Soft. Tender to palpation in left flank. No guarding or rigidity Extremities: No clubbing, cyanosis or edema. Warm : Flower in place Neurologic: AO x3, moves all 4 extremities PERRL Skin: No Rash Objective Data Vital Signs Vital Signs: Vital Signs - 24 hr 01/09/25 09:00 01/09/25 09:11 01/09/25 09:15 Temperature 38.9 C H 38.8 C H Pulse Rate 98 96 Respiratory Rate 15 16 16 Blood Pressure 98/74 L 99/76 L Pulse Oximetry 96 96 Oxygen Delivery Oxygen Flow Rate 01/09/25 09:16 01/09/25 09:30 01/09/25 09:31 Temperature 38.8 C H 38.8 C H 38.8 C H Pulse Rate 96 91 92 Respiratory Rate 16 16 16 Blood Pressure 103/75 Pulse Oximetry 96 98 97 Oxygen Delivery Oxygen Flow Rate 01/09/25 09:45 01/09/25 09:46 01/09/25 10:00 Temperature 38.7 C H 38.7 C H 38.6 C H Pulse Rate 88 89 90 Respiratory Rate 14 14 13 Blood Pressure 117/89 118/84 Pulse Oximetry 98 99 97 Oxygen Delivery Oxygen Flow Rate 01/09/25 10:00 01/09/25 10:04 01/09/25 10:30 Temperature 38.5 C H 38.4 C H Pulse Rate 86 87 87 Respiratory Rate 14 14 Blood Pressure 117/85 Pulse Oximetry 98 99 Oxygen Delivery Oxygen Flow Rate 01/09/25 11:52 01/09/25 12:00 01/09/25 12:00 Temperature 38.2 C H Pulse Rate 81 83 Respiratory Rate 18 Blood Pressure 122/89 Pulse Oximetry 98 98 Oxygen Delivery Nasal Cannula Oxygen Flow Rate 2 01/09/25 13:47 01/09/25 14:00 01/09/25 16:00 Temperature 38.1 C H Pulse Rate 81 80 Respiratory Rate 20 20 Blood Pressure 124/91 H 133/93 H Pulse Oximetry 97 99 98 Oxygen Delivery Nasal Cannula Oxygen Flow Rate 2 01/09/25 16:00 01/09/25 16:00 01/09/25 18:00 Temperature Pulse Rate 83 Respiratory Rate Blood Pressure 132/93 H Pulse Oximetry 98 Oxygen Delivery Nasal Cannula Oxygen Flow Rate 1 01/09/25 18:00 01/09/25 18:30 01/09/25 19:30 Temperature 38.8 C H 38.9 C H 38.6 C H Pulse Rate 83 Respiratory Rate 15 Blood Pressure 146/96 H Pulse Oximetry 96 Oxygen Delivery Oxygen Flow Rate 01/09/25 20:00 01/09/25 20:00 01/09/25 20:00 Temperature 38.6 C H Pulse Rate 81 81 Respiratory Rate 16 Blood Pressure 142/104 H Pulse Oximetry 98 97 Oxygen Delivery Nasal Cannula Oxygen Flow Rate 1 01/09/25 22:00 01/09/25 22:00 01/10/25 00:00 Temperature 37.6 C H Pulse Rate 71 71 Respiratory Rate 22 H Blood Pressure 118/88 Pulse Oximetry 94 90 Oxygen Delivery Room Air Oxygen Flow Rate 01/10/25 00:00 01/10/25 00:00 01/10/25 02:00 Temperature 37.1 C Pulse Rate 70 70 73 Respiratory Rate 10 L Blood Pressure 116/90 Pulse Oximetry 90 Oxygen Delivery Oxygen Flow Rate 01/10/25 02:00 01/10/25 04:00 01/10/25 04:00 Temperature 37.5 C Pulse Rate 73 79 Respiratory Rate 12 Blood Pressure 139/97 H Pulse Oximetry 92 93 Oxygen Delivery Room Air Oxygen Flow Rate 01/10/25 04:00 01/10/25 05:47 01/10/25 06:00 Temperature 38.1 C H 38.4 C H Pulse Rate 79 79 Respiratory Rate 12 Blood Pressure 160/116 H Pulse Oximetry 95 Oxygen Delivery Oxygen Flow Rate 01/10/25 06:00 01/10/25 06:45 01/10/25 08:00 Temperature 38.4 C H 38.0 C H 37.8 C H Pulse Rate 79 76 Respiratory Rate 15 13 Blood Pressure 143/101 H 156/104 H Pulse Oximetry 93 93 Oxygen Delivery Oxygen Flow Rate 01/10/25 08:41 Temperature Pulse Rate 74 Respiratory Rate Blood Pressure Pulse Oximetry Oxygen Delivery Oxygen Flow Rate Intake/Output Intake/Output: Intake & Output 01/07/25 01/08/25 01/09/25 01/10/25 23:59 23:59 23:59 23:59 Intake Total 1000 3802.8 724 Output Total 1550 1205 Balance 1000 2252.8 -481 Meds/Results Medications: Active Medications Generic Name Dose Route Start Last Admin Trade Name Freq PRN Reason Stop Dose Admin Acetaminophen 650 mg 01/09/25 19:44 01/10/25 05:47 Acetaminophen 650 Mg Suppository RECTAL 650 mg Q4H PRN Administration Mild Pain (1-3) or Fever Carvedilol 12.5 mg 01/08/25 21:00 01/10/25 08:41 Carvedilol 12.5 Mg Tablet PO 12.5 mg Q12HR MELLO Administration Chlordiazepoxide HCl 10 mg 01/10/25 07:40 01/10/25 08:41 Chlordiazepoxide (*Crx) 10 Mg Capsule PO 10 mg Q8HR MELLO Administration Dextrose 12.5 gm 01/09/25 19:39 01/09/25 19:51 Dextrose 50% 25 Gm/50 Ml Syringe IV PUSH 12.5 gm PRN PRN Administration Hypoglycemia Protocol Enoxaparin Sodium 40 mg 01/09/25 09:00 01/10/25 08:12 Enoxaparin 40 Mg/0.4 Ml Syringe SUB-Q Not Given DAILY MELLO Folic Acid 1 mg 01/09/25 09:00 01/10/25 08:53 Folic Acid 1 Mg/0.2 Ml Inj IV PUSH 1 mg QAM MELLO Administration Glucagon 1 mg 01/09/25 19:39 Glucagon For Inj 1 Mg Vial IM PRN PRN Hypoglycemia Protocol Glucose 15 gm 01/09/25 19:39 Glucose Oral Gel 15 Gm Of Glucse In 37.5 Gm Tube PO PRN PRN Hypoglycemia Protocol Hydralazine HCl 10 mg 01/08/25 14:17 Hydralazine Hcl 20 Mg/Ml Vial IV PUSH Q8H PRN Blood Pressure - High Piperacillin Sod/Tazobactam Sod 4.5 gm in 100 mls @ 200 mls/hr 01/09/25 09:00 01/10/25 08:53 Zosyn 4.5 Gm/Ns 100 Ml IVPB 200 mls/hr Q6H MELLO Administration Dextrose 1,000 mls @ 100 mls/hr 01/09/25 19:39 Dextrose 5% 1,000 Ml IVPB PRN PRN Hypoglycemia Protocol Dextrose/Lactated Ringer's 1,000 mls @ 50 mls/hr 01/10/25 00:50 01/10/25 00:51 Dextrose 5%/Lactated Ringers IV CONT 125 mls/hr .Q20H MELLO Administration Potassium Chloride/Dextrose/Sod Cl 1,000 mls @ 50 mls/hr 01/10/25 07:40 01/10/25 08:40 Kcl 20 Meq/D5/0.45% Sod Chl IV CONT 50 mls/hr .Q20H MELLO Administration Lorazepam 2 mg 01/09/25 08:23 Lorazepam Inj (*Crx) 2 Mg/Ml Vial IV PUSH Q1H PRN CIWA 8-14 Lorazepam 4 mg 01/09/25 08:23 Lorazepam Inj (*Crx) 2 Mg/Ml Vial IV PUSH Q1H PRN CIWA > 15 Morphine Sulfate 4 mg 01/08/25 13:21 01/10/25 08:43 Morphine Sulfate (*Crx) 4 Mg/Ml Inj IV PUSH 4 mg Q2H PRN Administration Pain Rated 7-10 Nicotine 1 patch 01/08/25 23:57 01/10/25 08:44 Nicotine (*Pbkc) 14 Mg Patch TRANSDERM 1 patch DAILY MELLO Administration Ondansetron HCl 4 mg 01/08/25 13:21 01/08/25 14:05 Ondansetron Inj 4 Mg/2 Ml Vial IV PUSH 4 mg Q4H PRN Administration Nausea Pantoprazole Sodium 40 mg 01/09/25 09:00 01/10/25 08:44 Pantoprazole Sodium Iv 40 Mg Vial IV PUSH 40 mg QAM MELLO Administration Pantoprazole Sodium 40 mg 01/08/25 14:26 Pantoprazole 40 Mg Tablet PO ONCE PRN acid reflux Potassium Chloride 40 meq 01/10/25 07:40 01/10/25 08:42 Potassium Chloride 20 Meq Packet (For Liquid) FEED TUBE 01/10/25 11:41 40 meq Q4H MELLO Administration Thiamine HCl 100 mg 01/10/25 09:00 01/10/25 08:44 Thiamine Hcl 200 Mg/2 Ml Vial IV PUSH 100 mg QAM MELLO Administration Radiology Results: ITS Impressions Abdomen Ultrasound 01/08/25 11:37 Impression: Hepatomegaly. Abdomen/Pelvis CT 01/08/25 11:51 IMPRESSION: 1. Pancreatitis involving the body and tail of the pancreas. Surrounding fat stranding and minimal fluid is noted. 2. Slightly dilated jejunal loops. Follow-up advised. 3. No evidence of appendicitis or diverticulitis. 4. Fat infiltration of the liver. Hepatomegaly. Abdomen X-Ray 01/09/25 10:02 IMPRESSION: 1. No gastric tube in stomach. ADDENDUM: 01/09/25 1056 CORRECTION: There is a dictation error in the impression section. With the correction capitalized this should read- 1. NASOGASTRIC tube in stomach. Labs Labs: Laboratory Results - last 24 hr 01/09/25 01/09/25 01/09/25 08:40 11:39 13:49 WBC RBC Hgb Hct MCV MCH MCHC RDW Plt Count MPV % Immature Plt Fraction Sodium Potassium Chloride Carbon Dioxide Anion Gap BUN Creatinine Estim Creat Clear Calc Estimated GFR Glucose POC Capillary Glucose 115 H Lactic Acid 1.4 Calcium Phosphorus 2.0 L Magnesium Total Bilirubin AST ALT Alkaline Phosphatase Total Protein Albumin Lipase 607 H Procalcitonin 0.2 Nasal MRSA (PCR) Not detected 01/09/25 01/09/25 01/09/25 18:44 19:46 20:57 WBC RBC Hgb Hct MCV MCH MCHC RDW Plt Count MPV % Immature Plt Fraction Sodium Potassium Chloride Carbon Dioxide Anion Gap BUN Creatinine Estim Creat Clear Calc Estimated GFR Glucose POC Capillary Glucose 68 73 87 Lactic Acid Calcium Phosphorus Magnesium Total Bilirubin AST ALT Alkaline Phosphatase Total Protein Albumin Lipase Procalcitonin Nasal MRSA (PCR) 01/09/25 01/09/25 01/10/25 21:59 23:03 00:16 WBC RBC Hgb Hct MCV MCH MCHC RDW Plt Count MPV % Immature Plt Fraction Sodium Potassium Chloride Carbon Dioxide Anion Gap BUN Creatinine Estim Creat Clear Calc Estimated GFR Glucose POC Capillary Glucose 82 78 74 Lactic Acid Calcium Phosphorus Magnesium Total Bilirubin AST ALT Alkaline Phosphatase Total Protein Albumin Lipase Procalcitonin Nasal MRSA (PCR) 01/10/25 01/10/25 01/10/25 01:06 02:10 03:04 WBC RBC Hgb Hct MCV MCH MCHC RDW Plt Count MPV % Immature Plt Fraction Sodium Potassium Chloride Carbon Dioxide Anion Gap BUN Creatinine Estim Creat Clear Calc Estimated GFR Glucose POC Capillary Glucose 72 86 88 Lactic Acid Calcium Phosphorus Magnesium Total Bilirubin AST ALT Alkaline Phosphatase Total Protein Albumin Lipase Procalcitonin Nasal MRSA (PCR) 01/10/25 01/10/25 04:00 05:49 WBC 9.1 RBC 3.87 L Hgb 13.0 L Hct 37.8 L MCV 97.7 MCH 33.6 MCHC 34.4 RDW 13.3 Plt Count 65 L MPV 10.5 H % Immature Plt Fraction 10.1 Sodium 134 L Potassium 3.2 L Chloride 99 Carbon Dioxide 30 Anion Gap 5 BUN 4 L Creatinine 0.85 Estim Creat Clear Calc 101 Estimated GFR > 60 Glucose 92 POC Capillary Glucose 85 Lactic Acid Calcium 7.2 L Phosphorus 2.5 Magnesium 2.5 H Total Bilirubin 3.4 H AST 190 H ALT 150 H Alkaline Phosphatase 89 Total Protein 6.6 Albumin 3.2 L Lipase Procalcitonin Nasal MRSA (PCR)
--- NOTE | 2025-01-10 09:16 | WPDGIPROGNO ---
Progress Note: A&P Assessment and Plan (1) Acute alcoholic pancreatitis: Code(s): K85.20 - Alcohol induced acute pancreatitis without necrosis or infection Status: Acute Assessment and Plan: clinically better he has + BS, less pain if he can tolerate liquid diet then remove ngt (2) Abnormal LFTs: Code(s): R79.89 - Other specified abnormal findings of blood chemistry Status: Acute Assessment and Plan: from alcoholic hepatitis/pancreatitis monitor hepatitis panel pending (3) Alcoholic hepatitis: Code(s): K70.10 - Alcoholic hepatitis without ascites Status: Acute (4) Ileus: Code(s): K56.7 - Ileus, unspecified Status: Acute Assessment and Plan: + BS, NGT in place- probably remove today, no more emesis (5) Alcohol withdrawal seizure: Code(s): F10.939 - Alcohol use, unspecified with withdrawal, unspecified; R56.9 - Unspecified convulsions Status: Acute Assessment and Plan: librium ciwa protocol in icu thiamine (6) Abdominal pain: Code(s): R10.9 - Unspecified abdominal pain Status: Acute (7) Nausea & vomiting: Code(s): R11.2 - Nausea with vomiting, unspecified Status: Acute Subjective Date/time seen: 01/10/25 09:16 Interval history: overall better, fully awake and alert, no more seizures still with abdominal pain but better ngt in place Review of Systems Review of Systems: All systems reviewed & are unremarkable except as noted in HPI and below Exam Narrative: General: Pt is alert awake in no distress neck: supple HEENT: pupils reactive, ngt in place Lungs/Chest: Trachea central Clear BS B/L, No crackles or wheezing Cardiac: RRR. Normal S1 S2. No murmurs Circulation: Pedal pulses are intact and symmetrical. Abdomen: Present bowel sounds.. Soft. Tender to palpation in left flank. No guarding or rigidity Extremities: No clubbing, cyanosis or edema. Warm : Flower in place Neurologic: AO x3, moves all 4 extremities PERRL Skin: No Rash Objective Data Vital Signs Vital Signs: Vital Signs - 24 hr 01/09/25 09:30 01/09/25 09:31 01/09/25 09:45 Temperature 101.8 F H 101.8 F H 101.6 F H Pulse Rate 91 92 88 Respiratory Rate 16 16 14 Blood Pressure 103/75 117/89 Pulse Oximetry 98 97 98 Oxygen Delivery Oxygen Flow Rate 01/09/25 09:46 01/09/25 10:00 01/09/25 10:00 Temperature 101.6 F H 101.4 F H Pulse Rate 89 90 86 Respiratory Rate 14 13 Blood Pressure 118/84 Pulse Oximetry 99 97 Oxygen Delivery Oxygen Flow Rate 01/09/25 10:04 01/09/25 10:30 01/09/25 11:52 Temperature 101.3 F H 101.2 F H 100.7 F H Pulse Rate 87 87 81 Respiratory Rate 14 14 18 Blood Pressure 117/85 122/89 Pulse Oximetry 98 99 98 Oxygen Delivery Oxygen Flow Rate 01/09/25 12:00 01/09/25 12:00 01/09/25 13:47 Temperature Pulse Rate 83 Respiratory Rate Blood Pressure Pulse Oximetry 98 97 Oxygen Delivery Nasal Cannula Nasal Cannula Oxygen Flow Rate 2 2 01/09/25 14:00 01/09/25 16:00 01/09/25 16:00 Temperature 100.5 F H Pulse Rate 81 80 Respiratory Rate 20 20 Blood Pressure 124/91 H 133/93 H 132/93 H Pulse Oximetry 99 98 Oxygen Delivery Oxygen Flow Rate 01/09/25 16:00 01/09/25 18:00 01/09/25 18:00 Temperature 101.9 F H Pulse Rate 83 83 Respiratory Rate 15 Blood Pressure 146/96 H Pulse Oximetry 98 96 Oxygen Delivery Nasal Cannula Oxygen Flow Rate 1 01/09/25 18:30 01/09/25 19:30 01/09/25 20:00 Temperature 102.1 F H 101.5 F H 101.4 F H Pulse Rate 81 Respiratory Rate 16 Blood Pressure 142/104 H Pulse Oximetry 98 Oxygen Delivery Oxygen Flow Rate 01/09/25 20:00 01/09/25 20:00 01/09/25 22:00 Temperature 99.7 F H Pulse Rate 81 71 Respiratory Rate 22 H Blood Pressure 118/88 Pulse Oximetry 97 94 Oxygen Delivery Nasal Cannula Oxygen Flow Rate 1 01/09/25 22:00 01/10/25 00:00 01/10/25 00:00 Temperature Pulse Rate 71 70 Respiratory Rate Blood Pressure Pulse Oximetry 90 Oxygen Delivery Room Air Oxygen Flow Rate 01/10/25 00:00 01/10/25 02:00 01/10/25 02:00 Temperature 98.8 F 99.5 F Pulse Rate 70 73 73 Respiratory Rate 10 L 12 Blood Pressure 116/90 139/97 H Pulse Oximetry 90 92 Oxygen Delivery Oxygen Flow Rate 01/10/25 04:00 01/10/25 04:00 01/10/25 04:00 Temperature 100.6 F H Pulse Rate 79 79 Respiratory Rate 12 Blood Pressure 160/116 H Pulse Oximetry 93 95 Oxygen Delivery Room Air Oxygen Flow Rate 01/10/25 05:47 01/10/25 06:00 01/10/25 06:00 Temperature 101.1 F H 101.2 F H Pulse Rate 79 79 Respiratory Rate 15 Blood Pressure 143/101 H Pulse Oximetry 93 Oxygen Delivery Oxygen Flow Rate 01/10/25 06:45 01/10/25 08:00 01/10/25 08:41 Temperature 100.4 F H 100.0 F H Pulse Rate 76 74 Respiratory Rate 13 Blood Pressure 156/104 H Pulse Oximetry 93 Oxygen Delivery Oxygen Flow Rate Intake/Output Intake/Output: Intake & Output 01/07/25 01/08/25 01/09/25 01/10/25 23:59 23:59 23:59 23:59 Intake Total 1000 3802.8 724 Output Total 1550 1205 Balance 1000 2252.8 -481 Meds/Results Medications: Active Medications Generic Name Dose Route Start Last Admin Trade Name Freq PRN Reason Stop Dose Admin Acetaminophen 650 mg 01/09/25 19:44 01/10/25 05:47 Acetaminophen 650 Mg Suppository RECTAL 650 mg Q4H PRN Administration Mild Pain (1-3) or Fever Carvedilol 12.5 mg 01/08/25 21:00 01/10/25 08:41 Carvedilol 12.5 Mg Tablet PO 12.5 mg Q12HR MELLO Administration Chlordiazepoxide HCl 10 mg 01/10/25 07:40 01/10/25 08:41 Chlordiazepoxide (*Crx) 10 Mg Capsule PO 10 mg Q8HR MELLO Administration Dextrose 12.5 gm 01/09/25 19:39 01/09/25 19:51 Dextrose 50% 25 Gm/50 Ml Syringe IV PUSH 12.5 gm PRN PRN Administration Hypoglycemia Protocol Enoxaparin Sodium 40 mg 01/09/25 09:00 01/10/25 08:12 Enoxaparin 40 Mg/0.4 Ml Syringe SUB-Q Not Given DAILY MELLO Folic Acid 1 mg 01/09/25 09:00 01/10/25 08:53 Folic Acid 1 Mg/0.2 Ml Inj IV PUSH 1 mg QAM MELLO Administration Glucagon 1 mg 01/09/25 19:39 Glucagon For Inj 1 Mg Vial IM PRN PRN Hypoglycemia Protocol Glucose 15 gm 01/09/25 19:39 Glucose Oral Gel 15 Gm Of Glucse In 37.5 Gm Tube PO PRN PRN Hypoglycemia Protocol Hydralazine HCl 10 mg 01/08/25 14:17 Hydralazine Hcl 20 Mg/Ml Vial IV PUSH Q8H PRN Blood Pressure - High Piperacillin Sod/Tazobactam Sod 4.5 gm in 100 mls @ 200 mls/hr 01/09/25 09:00 01/10/25 08:53 Zosyn 4.5 Gm/Ns 100 Ml IVPB 200 mls/hr Q6H MELLO Administration Dextrose 1,000 mls @ 100 mls/hr 01/09/25 19:39 Dextrose 5% 1,000 Ml IVPB PRN PRN Hypoglycemia Protocol Dextrose/Lactated Ringer's 1,000 mls @ 50 mls/hr 01/10/25 00:50 01/10/25 00:51 Dextrose 5%/Lactated Ringers IV CONT 125 mls/hr .Q20H MELLO Administration Potassium Chloride/Dextrose/Sod Cl 1,000 mls @ 50 mls/hr 01/10/25 07:40 01/10/25 08:40 Kcl 20 Meq/D5/0.45% Sod Chl IV CONT 50 mls/hr .Q20H MELLO Administration Lorazepam 2 mg 01/09/25 08:23 Lorazepam Inj (*Crx) 2 Mg/Ml Vial IV PUSH Q1H PRN CIWA 8-14 Lorazepam 4 mg 01/09/25 08:23 Lorazepam Inj (*Crx) 2 Mg/Ml Vial IV PUSH Q1H PRN CIWA > 15 Morphine Sulfate 4 mg 01/08/25 13:21 01/10/25 08:43 Morphine Sulfate (*Crx) 4 Mg/Ml Inj IV PUSH 4 mg Q2H PRN Administration Pain Rated 7-10 Nicotine 1 patch 01/08/25 23:57 01/10/25 08:44 Nicotine (*Pbkc) 14 Mg Patch TRANSDERM 1 patch DAILY MELLO Administration Ondansetron HCl 4 mg 01/08/25 13:21 01/08/25 14:05 Ondansetron Inj 4 Mg/2 Ml Vial IV PUSH 4 mg Q4H PRN Administration Nausea Pantoprazole Sodium 40 mg 01/09/25 09:00 01/10/25 08:44 Pantoprazole Sodium Iv 40 Mg Vial IV PUSH 40 mg QAM MELLO Administration Pantoprazole Sodium 40 mg 01/08/25 14:26 Pantoprazole 40 Mg Tablet PO ONCE PRN acid reflux Potassium Chloride 40 meq 01/10/25 07:40 01/10/25 08:42 Potassium Chloride 20 Meq Packet (For Liquid) FEED TUBE 01/10/25 11:41 40 meq Q4H MELLO Administration Thiamine HCl 100 mg 01/10/25 09:00 01/10/25 08:44 Thiamine Hcl 200 Mg/2 Ml Vial IV PUSH 100 mg QAM MELLO Administration Radiology Results: ITS Impressions Abdomen Ultrasound 01/08/25 11:37 Impression: Hepatomegaly. Abdomen/Pelvis CT 01/08/25 11:51 IMPRESSION: 1. Pancreatitis involving the body and tail of the pancreas. Surrounding fat stranding and minimal fluid is noted. 2. Slightly dilated jejunal loops. Follow-up advised. 3. No evidence of appendicitis or diverticulitis. 4. Fat infiltration of the liver. Hepatomegaly. Abdomen X-Ray 01/09/25 10:02 IMPRESSION: 1. No gastric tube in stomach. ADDENDUM: 01/09/25 1056 CORRECTION: There is a dictation error in the impression section. With the correction capitalized this should read- 1. NASOGASTRIC tube in stomach. Labs Labs: Laboratory Results - last 24 hr 01/09/25 01/09/25 01/09/25 08:40 11:39 13:49 WBC RBC Hgb Hct MCV MCH MCHC RDW Plt Count MPV % Immature Plt Fraction Sodium Potassium Chloride Carbon Dioxide Anion Gap BUN Creatinine Estim Creat Clear Calc Estimated GFR Glucose POC Capillary Glucose 115 H Calcium Phosphorus Magnesium Total Bilirubin AST ALT Alkaline Phosphatase Total Protein Albumin Procalcitonin 0.2 Nasal MRSA (PCR) Not detected 01/09/25 01/09/25 01/09/25 18:44 19:46 20:57 WBC RBC Hgb Hct MCV MCH MCHC RDW Plt Count MPV % Immature Plt Fraction Sodium Potassium Chloride Carbon Dioxide Anion Gap BUN Creatinine Estim Creat Clear Calc Estimated GFR Glucose POC Capillary Glucose 68 73 87 Calcium Phosphorus Magnesium Total Bilirubin AST ALT Alkaline Phosphatase Total Protein Albumin Procalcitonin Nasal MRSA (PCR) 01/09/25 01/09/25 01/10/25 21:59 23:03 00:16 WBC RBC Hgb Hct MCV MCH MCHC RDW Plt Count MPV % Immature Plt Fraction Sodium Potassium Chloride Carbon Dioxide Anion Gap BUN Creatinine Estim Creat Clear Calc Estimated GFR Glucose POC Capillary Glucose 82 78 74 Calcium Phosphorus Magnesium Total Bilirubin AST ALT Alkaline Phosphatase Total Protein Albumin Procalcitonin Nasal MRSA (PCR) 01/10/25 01/10/25 01/10/25 01:06 02:10 03:04 WBC RBC Hgb Hct MCV MCH MCHC RDW Plt Count MPV % Immature Plt Fraction Sodium Potassium Chloride Carbon Dioxide Anion Gap BUN Creatinine Estim Creat Clear Calc Estimated GFR Glucose POC Capillary Glucose 72 86 88 Calcium Phosphorus Magnesium Total Bilirubin AST ALT Alkaline Phosphatase Total Protein Albumin Procalcitonin Nasal MRSA (PCR) 01/10/25 01/10/25 04:00 05:49 WBC 9.1 RBC 3.87 L Hgb 13.0 L Hct 37.8 L MCV 97.7 MCH 33.6 MCHC 34.4 RDW 13.3 Plt Count 65 L MPV 10.5 H % Immature Plt Fraction 10.1 Sodium 134 L Potassium 3.2 L Chloride 99 Carbon Dioxide 30 Anion Gap 5 BUN 4 L Creatinine 0.85 Estim Creat Clear Calc 101 Estimated GFR > 60 Glucose 92 POC Capillary Glucose 85 Calcium 7.2 L Phosphorus 2.5 Magnesium 2.5 H Total Bilirubin 3.4 H AST 190 H ALT 150 H Alkaline Phosphatase 89 Total Protein 6.6 Albumin 3.2 L Procalcitonin Nasal MRSA (PCR)
[2025-01-10 10:39] LABS: Hepatitis B Surface Antigen Negative (Negative)
[2025-01-10 10:46] LABS: HAV RESULT Negative (Negative); Hepatitis B Core IgM Result Negative (Negative)
[2025-01-10 10:57] LABS: Hepatitis C Virus Antibody Negative (Negative)
[2025-01-10 11:41] LABS: Glucose Point of Care 80 mg/dl (65-105)
--- NOTE | 2025-01-10 13:21 | P.PNIM_ITS ---
Progress Note: A&P Assessment and Plan (1) Acute alcoholic pancreatitis: Code(s): K85.20 - Alcohol induced acute pancreatitis without necrosis or infection Status: Acute Assessment and Plan: Presented with elevated lipase CT scan IMPRESSION: 1. Pancreatitis involving the body and tail of the pancreas. Surrounding fat stranding and minimal fluid is noted. 2. Slightly dilated jejunal loops. Follow-up advised. 3. No evidence of appendicitis or diverticulitis. 4. Fat infiltration of the liver. Hepatomegaly. Started on clear liquid diet. Will DC NG tube if tolerated Pain control GI team on board Monitor lipase level IV fluid (2) Hypertension: Code(s): I10 - Essential (primary) hypertension Status: Acute Assessment and Plan: Coreg (3) Alcoholic hepatitis: Code(s): K70.10 - Alcoholic hepatitis without ascites Status: Acute Assessment and Plan: Elevated LFTs secondary to alcoholic hepatitis. Levels improving. Monitor Hepatitis panel negative (4) Electrolyte abnormality: Code(s): E87.8 - Other disorders of electrolyte and fluid balance, not elsewhere classified Status: Acute Assessment and Plan: Replace low Mag as needed (5) Alcohol withdrawal seizure: Code(s): F10.939 - Alcohol use, unspecified with withdrawal, unspecified; R56.9 - Unspecified convulsions Status: Acute Assessment and Plan: History of heavy alcohol intake for long time now presented with alcohol withdra wal and alcohol withdrawal seizure IV fluids Rapid response was called on 01/09/2025 because of seizure. Patient received phenobarb and Valium and transferred to ICU CIWA score monitor P.r.n. IV IV thiamine folic acid librium (6) Alcohol withdrawal: Code(s): F10.939 - Alcohol use, unspecified with withdrawal, unspecified Status: Acute Assessment and Plan: See above (7) UTI (urinary tract infection): Code(s): N39.0 - Urinary tract infection, site not specified Status: Acute Assessment and Plan: UA abnormal Blood and urine culture Patient is currently on IV Zosyn. continue for now (8) Ileus: Code(s): K56.7 - Ileus, unspecified Status: Acute Assessment and Plan: CT scan suggest ileus likely from pancreatitis. Patient also presented with nausea vomiting Has NGT (9) Thrombocytopathia: Code(s): D69.1 - Qualitative platelet defects Status: Acute Assessment and Plan: In setting of alcohol abuse Monitor for now Subjective Date/time seen: 01/10/25 13:21 Interval history: per hPI: 44 yo male with PMH of HTN, GERD and alcohol abuse who presented to the ER on account of abd pain. Described as sharp upper abdominal region, 10/10 intensity, no radiation but associated with profuse vomiting the past 3 days. Noted lightheadedness but denies any Chest pain, SOB, dysuria, and LOC. Er eval notable for BP 148/105, labs notable for AST 1076, ALT 398, Bili 5.3, and Lipase 867, CT AP showed pancreatitis involving the body and tail of the pancreas and fat infiltrationi of the liver. INR 0.8. GI was consulted prior to admission 01/09/25 Patient was seen and examined at bedside. Rapid response was called early AM because of alcohol withdrawal seizure. The patient received Valium on phenobarbital. Patient was transferred to ICU for further management. Patient also has pancreatitis. NG tube in place. Continue with CIWA protocol Continue IV antibiotics for sepsis/UTI. 01/10/25 Patient was seen and examined at bedside. He is more alert, oriented this morning. WBC 9.1, hemoglobin 13, platelet 65, potassium 3.2. Liver enzymes improving. Hepatitis panel negative. Blood culture pending. Started on clear liquid diet Review of Systems Review of Systems: All other systems were reviewed and negative except as noted in the HPI above ROS unobtainable: Yes unobtainable due to medical condition and unobtainabl e due to mental status Exam Narrative: General: Alert oriented Lungs/Chest: Trachea central Clear BS B/L, No crackles or wheezing. Cardiac: RRR. Normal S1 S2. No murmurs Circulation: Pedal pulses are intact and symmetrical. Abdomen: Present bowel sounds.. Epigastric tender Extremities: No clubbing, cyanosis or edema. Warm : Flower in place Skin: No Rash Objective Data Vital Signs Vital Signs: Vital Signs - 24 hr 01/09/25 13:47 01/09/25 14:00 01/09/25 16:00 Temperature 100.5 F H Pulse Rate 81 80 Respiratory Rate 20 20 Blood Pressure 124/91 H 133/93 H Pulse Oximetry 97 99 98 Oxygen Delivery Nasal Cannula Oxygen Flow Rate 2 01/09/25 16:00 01/09/25 16:00 01/09/25 18:00 Temperature Pulse Rate 83 Respiratory Rate Blood Pressure 132/93 H Pulse Oximetry 98 Oxygen Delivery Nasal Cannula Oxygen Flow Rate 1 01/09/25 18:00 01/09/25 18:30 01/09/25 19:30 Temperature 101.9 F H 102.1 F H 101.5 F H Pulse Rate 83 Respiratory Rate 15 Blood Pressure 146/96 H Pulse Oximetry 96 Oxygen Delivery Oxygen Flow Rate 01/09/25 20:00 01/09/25 20:00 01/09/25 20:00 Temperature 101.4 F H Pulse Rate 81 81 Respiratory Rate 16 Blood Pressure 142/104 H Pulse Oximetry 98 97 Oxygen Delivery Nasal Cannula Oxygen Flow Rate 1 01/09/25 22:00 01/09/25 22:00 01/10/25 00:00 Temperature 99.7 F H Pulse Rate 71 71 Respiratory Rate 22 H Blood Pressure 118/88 Pulse Oximetry 94 90 Oxygen Delivery Room Air Oxygen Flow Rate 01/10/25 00:00 01/10/25 00:00 01/10/25 02:00 Temperature 98.8 F Pulse Rate 70 70 73 Respiratory Rate 10 L Blood Pressure 116/90 Pulse Oximetry 90 Oxygen Delivery Oxygen Flow Rate 01/10/25 02:00 01/10/25 04:00 01/10/25 04:00 Temperature 99.5 F Pulse Rate 73 79 Respiratory Rate 12 Blood Pressure 139/97 H Pulse Oximetry 92 93 Oxygen Delivery Room Air Oxygen Flow Rate 01/10/25 04:00 01/10/25 05:47 01/10/25 06:00 Temperature 100.6 F H 101.1 F H Pulse Rate 79 79 Respiratory Rate 12 Blood Pressure 160/116 H Pulse Oximetry 95 Oxygen Delivery Oxygen Flow Rate 01/10/25 06:00 01/10/25 06:45 01/10/25 08:00 Temperature 101.2 F H 100.4 F H 100.0 F H Pulse Rate 79 76 Respiratory Rate 15 13 Blood Pressure 143/101 H 156/104 H Pulse Oximetry 93 93 Oxygen Delivery Oxygen Flow Rate 01/10/25 08:41 01/10/25 10:00 01/10/25 12:00 Temperature 97.7 F 98.2 F Pulse Rate 74 77 80 Respiratory Rate 15 11 L Blood Pressure 145/99 H 144/109 H Pulse Oximetry Oxygen Delivery Oxygen Flow Rate Intake/Output Intake/Output: Intake & Output 06/19/25 06/20/25 06/21/25 06/22/25 23:59 23:59 23:59 23:59 Intake Total 1000 3802.8 724 Output Total 1550 1205 Balance 1000 2252.8 -481 Meds/Results Medications: Active Medications Generic Name Dose Route Start Last Admin Trade Name Freq PRN Reason Stop Dose Admin Acetaminophen 650 mg 01/09/25 19:44 01/10/25 05:47 Acetaminophen 650 Mg Suppository RECTAL 650 mg Q4H PRN Administration Mild Pain (1-3) or Fever Carvedilol 12.5 mg 01/08/25 21:00 01/10/25 08:41 Carvedilol 12.5 Mg Tablet PO 12.5 mg Q12HR MELLO Administration Chlordiazepoxide HCl 10 mg 01/10/25 07:40 01/10/25 08:41 Chlordiazepoxide (*Crx) 10 Mg Capsule PO 10 mg Q8HR MELLO Administration Dextrose 12.5 gm 01/09/25 19:39 01/09/25 19:51 Dextrose 50% 25 Gm/50 Ml Syringe IV PUSH 12.5 gm PRN PRN Administration Hypoglycemia Protocol Enoxaparin Sodium 40 mg 01/09/25 09:00 01/10/25 08:12 Enoxaparin 40 Mg/0.4 Ml Syringe SUB-Q Not Given DAILY MELLO Folic Acid 1 mg 01/09/25 09:00 01/10/25 08:53 Folic Acid 1 Mg/0.2 Ml Inj IV PUSH 1 mg QAM MELLO Administration Glucagon 1 mg 01/09/25 19:39 Glucagon For Inj 1 Mg Vial IM PRN PRN Hypoglycemia Protocol Glucose 15 gm 01/09/25 19:39 Glucose Oral Gel 15 Gm Of Glucse In 37.5 Gm Tube PO PRN PRN Hypoglycemia Protocol Hydralazine HCl 10 mg 01/08/25 14:17 Hydralazine Hcl 20 Mg/Ml Vial IV PUSH Q8H PRN Blood Pressure - High Piperacillin Sod/Tazobactam Sod 4.5 gm in 100 mls @ 200 mls/hr 01/09/25 09:00 01/10/25 08:53 Zosyn 4.5 Gm/Ns 100 Ml IVPB 200 mls/hr Q6H MELLO Administration Dextrose 1,000 mls @ 100 mls/hr 01/09/25 19:39 Dextrose 5% 1,000 Ml IVPB PRN PRN Hypoglycemia Protocol Dextrose/Lactated Ringer's 1,000 mls @ 50 mls/hr 01/10/25 00:50 01/10/25 00:51 Dextrose 5%/Lactated Ringers IV CONT 125 mls/hr .Q20H MELLO Administration Potassium Chloride/Dextrose/Sod Cl 1,000 mls @ 50 mls/hr 01/10/25 07:40 01/10/25 08:40 Kcl 20 Meq/D5/0.45% Sod Chl IV CONT 50 mls/hr .Q20H MELLO Administration Lorazepam 2 mg 01/09/25 08:23 Lorazepam Inj (*Crx) 2 Mg/Ml Vial IV PUSH Q1H PRN CIWA 8-14 Lorazepam 4 mg 01/09/25 08:23 Lorazepam Inj (*Crx) 2 Mg/Ml Vial IV PUSH Q1H PRN CIWA > 15 Morphine Sulfate 4 mg 01/08/25 13:21 01/10/25 08:43 Morphine Sulfate (*Crx) 4 Mg/Ml Inj IV PUSH 4 mg Q2H PRN Administration Pain Rated 7-10 Nicotine 1 patch 01/08/25 23:57 01/10/25 08:44 Nicotine (*Pbkc) 14 Mg Patch TRANSDERM 1 patch DAILY MELLO Administration Ondansetron HCl 4 mg 01/08/25 13:21 01/08/25 14:05 Ondansetron Inj 4 Mg/2 Ml Vial IV PUSH 4 mg Q4H PRN Administration Nausea Pantoprazole Sodium 40 mg 01/09/25 09:00 01/10/25 08:44 Pantoprazole Sodium Iv 40 Mg Vial IV PUSH 40 mg QAM MELLO Administration Pantoprazole Sodium 40 mg 01/08/25 14:26 Pantoprazole 40 Mg Tablet PO ONCE PRN acid reflux Thiamine HCl 100 mg 01/10/25 09:00 01/10/25 08:44 Thiamine Hcl 200 Mg/2 Ml Vial IV PUSH 100 mg QAM MELLO Administration Radiology Results: ITS Impressions Abdomen Ultrasound 01/08/25 11:37 Impression: Hepatomegaly. Abdomen/Pelvis CT 01/08/25 11:51 IMPRESSION: 1. Pancreatitis involving the body and tail of the pancreas. Surrounding fat stranding and minimal fluid is noted. 2. Slightly dilated jejunal loops. Follow-up advised. 3. No evidence of appendicitis or diverticulitis. 4. Fat infiltration of the liver. Hepatomegaly. Abdomen X-Ray 01/09/25 10:02 IMPRESSION: 1. No gastric tube in stomach. ADDENDUM: 01/09/25 1056 CORRECTION: There is a dictation error in the impression section. With the correction capitalized this should read- 1. NASOGASTRIC tube in stomach. Labs Labs: Laboratory Results - last 24 hr 01/09/25 01/09/25 01/09/25 13:49 18:44 19:46 WBC RBC Hgb Hct MCV MCH MCHC RDW Plt Count MPV % Immature Plt Fraction Sodium Potassium Chloride Carbon Dioxide Anion Gap BUN Creatinine Estim Creat Clear Calc Estimated GFR Glucose POC Capillary Glucose 68 73 Calcium Phosphorus Magnesium Total Bilirubin AST ALT Alkaline Phosphatase Total Protein Albumin Nasal MRSA (PCR) Not detected Hepatitis A IgM Ab Hep Bs Antigen Hep B Core IgM Ab Hepatitis C Ab Screen 01/09/25 01/09/25 01/09/25 20:57 21:59 23:03 WBC RBC Hgb Hct MCV MCH MCHC RDW Plt Count MPV % Immature Plt Fraction Sodium Potassium Chloride Carbon Dioxide Anion Gap BUN Creatinine Estim Creat Clear Calc Estimated GFR Glucose POC Capillary Glucose 87 82 78 Calcium Phosphorus Magnesium Total Bilirubin AST ALT Alkaline Phosphatase Total Protein Albumin Nasal MRSA (PCR) Hepatitis A IgM Ab Hep Bs Antigen Hep B Core IgM Ab Hepatitis C Ab Screen 01/10/25 01/10/25 01/10/25 00:16 01:06 02:10 WBC RBC Hgb Hct MCV MCH MCHC RDW Plt Count MPV % Immature Plt Fraction Sodium Potassium Chloride Carbon Dioxide Anion Gap BUN Creatinine Estim Creat Clear Calc Estimated GFR Glucose POC Capillary Glucose 74 72 86 Calcium Phosphorus Magnesium Total Bilirubin AST ALT Alkaline Phosphatase Total Protein Albumin Nasal MRSA (PCR) Hepatitis A IgM Ab Hep Bs Antigen Hep B Core IgM Ab Hepatitis C Ab Screen 01/10/25 01/10/25 01/10/25 03:04 03:50 04:00 WBC 9.1 RBC 3.87 L Hgb 13.0 L Hct 37.8 L MCV 97.7 MCH 33.6 MCHC 34.4 RDW 13.3 Plt Count 65 L MPV 10.5 H % Immature Plt Fraction 10.1 Sodium 134 L Potassium 3.2 L Chloride 99 Carbon Dioxide 30 Anion Gap 5 BUN 4 L Creatinine 0.85 Estim Creat Clear Calc 101 Estimated GFR > 60 Glucose 92 POC Capillary Glucose 88 Calcium 7.2 L Phosphorus 2.5 Magnesium 2.5 H Total Bilirubin 3.4 H AST 190 H ALT 150 H Alkaline Phosphatase 89 Total Protein 6.6 Albumin 3.2 L Nasal MRSA (PCR) Hepatitis A IgM Ab Negative Hep Bs Antigen Negative Hep B Core IgM Ab Negative Hepatitis C Ab Screen Negative 01/10/25 01/10/25 05:49 11:23 WBC RBC Hgb Hct MCV MCH MCHC RDW Plt Count MPV % Immature Plt Fraction Sodium Potassium Chloride Carbon Dioxide Anion Gap BUN Creatinine Estim Creat Clear Calc Estimated GFR Glucose POC Capillary Glucose 85 80 Calcium Phosphorus Magnesium Total Bilirubin AST ALT Alkaline Phosphatase Total Protein Albumin Nasal MRSA (PCR) Hepatitis A IgM Ab Hep Bs Antigen Hep B Core IgM Ab Hepatitis C Ab Screen
[2025-01-10] MEDS: ACETAMINOPHEN 325 MG TABLET 650 MG PO (13:53)
--- NOTE | 2025-01-10 16:02 | ADMGEN ---
This patient, Yusuf Taylor, was admitted to IMU Room 214-01 from ICU 2. Patient/family oriented to hospital policies and general routines including ID bracelet, bed and alarms, visiting hours, pain management, procedures, bathroom and other care routines, personal items, smoking policy, room service/diet, and visiting hours. family at bedside with pt's personal belongings, stand and pivot to bed without difficulty Information on how to activate the Rapid Response Team has been discussed. Patient/Family are encouraged to report perceived risks to care and to ask questions if they do not understand what they are told or what they should do.
[2025-01-11] VITALS (15 sets, daily range): BP systolic 131–154; BP diastolic 89–102; PULSE 72–86; RESP 16–20; TEMP 36.6–37.1; O2SAT 94–100
[2025-01-11 00:48] LABS: Glucose Point of Care 102 mg/dl (65-105)
[2025-01-11] MEDS: PIPERACILLIN/TAZ 4.5G/NS 100ML 4.5 GM/100 ML BAG IVPB ×2 (03:09→08:42)
[2025-01-11 04:31] LABS: Hematocrit 34.4 % (42.0-52.0); Hemoglobin 11.7 g/dL (14.0-18.0); Immature Platelet Fraction Pct 9.7 % (0.9-11.2); Mean Corpuscular Hemoglobin 33.8 pg (26-34); Mean Corpuscular Volume 99.4 fl (80-100); Mean Platelet Volume 11.3 fl (7.4-10.4); Platelet Count Result 81 k/mm3 (150-375); Red Blood Count 3.46 M/mm3 (4.6-6.20); Red Cell Distribution Width 13.2 % (11.5-14.5); White Blood Count 7.3 K/mm3 (4.5-10.0)
[2025-01-11] MEDS: KCL 20 MEQ/D5/0.45% SOD CHL 1,000 ML 50 ML IV CONT (04:41)
[2025-01-11 04:56] LABS: Alanine Aminotransferase 113 U/L (6-50); Alkaline Phosphatase 100 U/L (38-126); Anion Gap 5 mmol/L (4-12); Aspartate Amino Transferase 129 U/L (17-59); Bilirubin,Total 3.3 mg/dL (0.2-1.3); Calcium 7.7 mg/dL (8.4-10.2); Carbon Dioxide 29 mmol/L (22-30); Chloride 98 mmol/L (98-107); Estimated CRCL calculation 105 ml/min; Estimated Glomerular Filt Rate > 60; Glucose 93 mg/dL (65-110); Lipase 425 U/L (23-300); Phosphorus 1.9 mg/dL (2.5-4.5); Potassium 3.5 mmol/L (3.4-5.0); Sodium 132 mmol/L (137-145); Total Protein 6.4 g/dL (6.3-8.2)
[2025-01-11 05:12] LABS: Blood Urea Nitrogen < 2 mg/dL (9-20)
[2025-01-11] MEDS: chlordiazePOXIDE (*CRX) 10 MG CAPSULE PO ×3 (06:37→21:01)
[2025-01-11] MEDS: carvediloL 12.5 MG TABLET PO ×2 (08:42→21:01)
[2025-01-11] MEDS: NICOTINE (*PBKC) 14 MG PATCH 1 PATCH TRANSDERM (08:42)
[2025-01-11] MEDS: FOLIC ACID 1 MG/0.2 ML INJ IV PUSH (08:42)
[2025-01-11] MEDS: PANTOPRAZOLE SODIUM IV 40 MG VIAL IV PUSH (08:43)
[2025-01-11] MEDS: THIAMINE HCL 200 MG/2 ML VIAL 100 MG IV PUSH (08:43)
[2025-01-11] MEDS: POTASSIUM CHLORIDE 20 MEQ PACKET (FOR LIQUID) 40 MEQ PO (11:05)
[2025-01-11] MEDS: CALCIUM CARBONATE (TUMS) 500 MG (200 MG ELEMENTAL) PO (12:10)
--- NOTE | 2025-01-11 12:51 | WPDGIPROGNO ---
Progress Note: A&P Assessment and Plan (1) Acute alcoholic pancreatitis: Code(s): K85.20 - Alcohol induced acute pancreatitis without necrosis or infection Status: Acute Assessment and Plan: less pain and tolerating diet no more nausea liver enzymes trending down, normal renal function (2) Abnormal LFTs: Code(s): R79.89 - Other specified abnormal findings of blood chemistry Status: Acute Assessment and Plan: from alcoholic hepatitis/pancreatitis trending down hepatitis panel negative (3) Alcoholic hepatitis: Code(s): K70.10 - Alcoholic hepatitis without ascites Status: Acute Assessment and Plan: improving thiamine (4) Ileus: Code(s): K56.7 - Ileus, unspecified Status: Acute Assessment and Plan: resolved (5) Alcohol withdrawal seizure: Code(s): F10.939 - Alcohol use, unspecified with withdrawal, unspecified; R56.9 - Unspecified convulsions Status: Acute Assessment and Plan: librium better thiamine (6) Abdominal pain: Code(s): R10.9 - Unspecified abdominal pain Status: Acute Subjective Date/time seen: 01/11/25 12:51 Interval history: overall better, moved to floor, no more seizures or confusion pain has improved and tolerated diet family member at bedside Review of Systems Review of Systems: All systems reviewed & are unremarkable except as noted in HPI and below Exam Narrative: General: Pt is alert awake in no distress neck: supple HEENT: pupils reactive, ngt in place Lungs/Chest: Trachea central Clear BS B/L, No crackles or wheezing Cardiac: RRR. Normal S1 S2. No murmurs Circulation: Pedal pulses are intact and symmetrical. Abdomen: Present bowel sounds. Soft. less tender to palpation in left flank. No guarding or rigidity Extremities: No clubbing, cyanosis or edema. Warm : Flower in place Neurologic: AO x3, moves all 4 extremities PERRL Skin: No Rash Objective Data Vital Signs Vital Signs: Vital Signs - 24 hr 01/10/25 14:00 01/10/25 14:00 01/10/25 16:00 Temperature 98.5 F Pulse Rate 76 76 Pulse Rate [Bilateral Radial Palpation] Pulse Rate [Monitor] 69 Respiratory Rate 11 L Blood Pressure 147/111 H Pulse Oximetry 97 Oxygen Delivery 01/10/25 16:00 01/10/25 16:00 01/10/25 18:00 Temperature 98.2 F Pulse Rate 76 71 77 Pulse Rate [Bilateral Radial Palpation] Pulse Rate [Monitor] Respiratory Rate 18 Blood Pressure 135/94 H Pulse Oximetry 98 Oxygen Delivery 01/10/25 20:00 01/10/25 20:00 01/10/25 20:34 Temperature 98.2 F Pulse Rate 79 79 87 Pulse Rate [Bilateral Radial Palpation] Pulse Rate [Monitor] Respiratory Rate 18 Blood Pressure 155/111 H Pulse Oximetry 100 Oxygen Delivery 01/10/25 20:34 01/10/25 22:00 01/10/25 23:47 Temperature 98.1 F Pulse Rate 80 78 Pulse Rate [Bilateral Radial Palpation] Pulse Rate [Monitor] Respiratory Rate 18 Blood Pressure 144/87 H Pulse Oximetry 99 Oxygen Delivery Room Air 01/11/25 00:00 01/11/25 00:45 01/11/25 02:00 Temperature Pulse Rate 76 78 Pulse Rate [Bilateral Radial Palpation] Pulse Rate [Monitor] Respiratory Rate Blood Pressure Pulse Oximetry Oxygen Delivery Room Air 01/11/25 03:19 01/11/25 04:00 01/11/25 04:35 Temperature 98.3 F Pulse Rate 82 83 Pulse Rate [Bilateral Radial Palpation] Pulse Rate [Monitor] Respiratory Rate 20 Blood Pressure 154/98 H Pulse Oximetry 97 Oxygen Delivery Room Air 01/11/25 06:00 01/11/25 08:00 01/11/25 08:00 Temperature 98.3 F Pulse Rate 82 77 Pulse Rate [Bilateral Radial Palpation] Pulse Rate [Monitor] Respiratory Rate 16 Blood Pressure 153/96 H Pulse Oximetry 99 Oxygen Delivery Room Air 01/11/25 08:00 01/11/25 08:42 01/11/25 10:00 Temperature Pulse Rate 78 84 73 Pulse Rate [Bilateral Radial Palpation] Pulse Rate [Monitor] Respiratory Rate Blood Pressure Pulse Oximetry Oxygen Delivery 01/11/25 12:00 01/11/25 12:00 Temperature Pulse Rate 72 Pulse Rate [Bilateral Radial Palpation] 73 Pulse Rate [Monitor] Respiratory Rate Blood Pressure Pulse Oximetry Oxygen Delivery Intake/Output Intake/Output: Intake & Output 01/08/25 01/09/25 01/10/25 01/11/25 23:59 23:59 23:59 23:59 Intake Total 1000 3802.8 1504 2140 Output Total 1550 1805 Balance 1000 2252.8 -301 2140 Meds/Results Medications: Active Medications Generic Name Dose Route Start Last Admin Trade Name Freq PRN Reason Stop Dose Admin Acetaminophen 650 mg 01/10/25 13:41 01/10/25 13:53 Acetaminophen 325 Mg Tablet PO 650 mg Q6H PRN Administration Mild Pain (1-3) or Fever Calcium Carbonate 200 mg 01/11/25 11:49 01/11/25 12:10 Calcium Carbonate (Tums) 500 Mg (200 Mg Elemental) PO 200 mg Q6H PRN Administration Indigestion Carvedilol 12.5 mg 01/08/25 21:00 01/11/25 08:42 Carvedilol 12.5 Mg Tablet PO 12.5 mg Q12HR MELLO Administration Chlordiazepoxide HCl 10 mg 01/10/25 07:40 01/11/25 06:37 Chlordiazepoxide (*Crx) 10 Mg Capsule PO 10 mg Q8HR MELLO Administration Dextrose 12.5 gm 01/09/25 19:39 01/09/25 19:51 Dextrose 50% 25 Gm/50 Ml Syringe IV PUSH 12.5 gm PRN PRN Administration Hypoglycemia Protocol Folic Acid 1 mg 01/09/25 09:00 01/11/25 08:42 Folic Acid 1 Mg/0.2 Ml Inj IV PUSH 1 mg QAM MELOL Administration Glucagon 1 mg 01/09/25 19:39 Glucagon For Inj 1 Mg Vial IM PRN PRN Hypoglycemia Protocol Glucose 15 gm 01/09/25 19:39 Glucose Oral Gel 15 Gm Of Glucse In 37.5 Gm Tube PO PRN PRN Hypoglycemia Protocol Hydralazine HCl 10 mg 01/08/25 14:17 Hydralazine Hcl 20 Mg/Ml Vial IV PUSH Q8H PRN Blood Pressure - High Piperacillin Sod/Tazobactam Sod 4.5 gm in 100 mls @ 200 mls/hr 01/09/25 09:00 01/11/25 10:01 Zosyn 4.5 Gm/Ns 100 Ml IVPB Infused Q6H MELLO Infusion Dextrose 1,000 mls @ 100 mls/hr 01/09/25 19:39 Dextrose 5% 1,000 Ml IVPB PRN PRN Hypoglycemia Protocol Lorazepam 2 mg 01/09/25 08:23 Lorazepam Inj (*Crx) 2 Mg/Ml Vial IV PUSH Q1H PRN CIWA 8-14 Lorazepam 4 mg 01/09/25 08:23 Lorazepam Inj (*Crx) 2 Mg/Ml Vial IV PUSH Q1H PRN CIWA > 15 Morphine Sulfate 4 mg 01/08/25 13:21 01/10/25 22:30 Morphine Sulfate (*Crx) 4 Mg/Ml Inj IV PUSH 4 mg Q2H PRN Administration Pain Rated 7-10 Nicotine 1 patch 01/08/25 23:57 01/11/25 08:42 Nicotine (*Pbkc) 14 Mg Patch TRANSDERM 1 patch DAILY MELLO Administration Ondansetron HCl 4 mg 01/08/25 13:21 01/08/25 14:05 Ondansetron Inj 4 Mg/2 Ml Vial IV PUSH 4 mg Q4H PRN Administration Nausea Pantoprazole Sodium 40 mg 01/09/25 09:00 01/11/25 08:43 Pantoprazole Sodium Iv 40 Mg Vial IV PUSH 40 mg QAM MELLO Administration Pantoprazole Sodium 40 mg 01/08/25 14:26 Pantoprazole 40 Mg Tablet PO ONCE PRN acid reflux Sodium Phosphate 250 mg 01/11/25 13:00 Potassium Phos/Sodium Phos 250 Mg Tablet PO 01/12/25 08:00 TID MELLO Thiamine HCl 100 mg 01/10/25 09:00 01/11/25 08:43 Thiamine Hcl 200 Mg/2 Ml Vial IV PUSH 100 mg QAM MELLO Administration Radiology Results: ITS Impressions Abdomen Ultrasound 01/08/25 11:37 Impression: Hepatomegaly. Abdomen/Pelvis CT 01/08/25 11:51 IMPRESSION: 1. Pancreatitis involving the body and tail of the pancreas. Surrounding fat stranding and minimal fluid is noted. 2. Slightly dilated jejunal loops. Follow-up advised. 3. No evidence of appendicitis or diverticulitis. 4. Fat infiltration of the liver. Hepatomegaly. Abdomen X-Ray 01/09/25 10:02 IMPRESSION: 1. No gastric tube in stomach. ADDENDUM: 01/09/25 1056 CORRECTION: There is a dictation error in the impression section. With the correction capitalized this should read- 1. NASOGASTRIC tube in stomach. Labs Labs: Laboratory Results - last 24 hr 01/11/25 01/11/25 00:45 04:02 WBC 7.3 RBC 3.46 L Hgb 11.7 L Hct 34.4 L MCV 99.4 MCH 33.8 MCHC 34.0 RDW 13.2 Plt Count 81 L MPV 11.3 H % Immature Plt Fraction 9.7 Sodium 132 L Potassium 3.5 Chloride 98 Carbon Dioxide 29 Anion Gap 5 BUN < 2 L Creatinine 0.82 Estim Creat Clear Calc 105 Estimated GFR > 60 Glucose 93 POC Capillary Glucose 102 Calcium 7.7 L Phosphorus 1.9 L Magnesium 2.0 Total Bilirubin 3.3 H AST 129 H ALT 113 H Alkaline Phosphatase 100 Total Protein 6.4 Albumin 3.0 L Lipase 425 H
--- NOTE | 2025-01-11 13:55 | WPDCDIQUERY2 ---
CDI Query Clarification Request Please clarify if UTI has been ruled in or ruled out The medical chart reflects the followin yo male with PMH of HTN, GERD and alcohol abuse who presented to the ER on account of abd pain. Described as sharp upper abdominal region, 10/10 intensity, no radiation but associated with profuse vomiting the past 3 days. Noted lightheadedness but denies any Chest pain, SOB, dysuria, and LOC. Er eval notable for BP 148/105, labs notable for AST 1076, ALT 398, Bili 5.3, and Lipase 867, CT AP showed pancreatitis involving the body and tail of the pancreas and fat infiltrationi of the liver. INR 0.8. GI was consulted prior to admission Urine Color [place] H Yellow ML Urine Appearance Clear Clear ML Urine pH 6.5 5.0-9.0 ML Specific [place] Ur 1.017 1.001-1.035 ML Urine Protein 1+ H Negative mg/dL ML Urine Glucose Negative Negative mg/dL ML Urine Ketones 1+ H Negative mg/dL ML Blood Urine Negative Negative ML Urine Nitrate Positive H Negative ML Urine Bilirubin 2+ H Negative ML Urine Urobilinogen 2.0 H <2.0 mg/dL ML Leukocyte Esterase Ur 1+ H Negative ALEXIS/UL ML Urine RBC 0-2 0-2 /hpf ML Urine WBC 0-5 0-3 /hpf ML Squamous Epi Ur Occasional Few /hpf ML Urine Bacteria None Seen /hpf ML Non Pathogenic Casts 3-5 (7) UTI (urinary tract infection): Code(s): N39.0 - Urinary tract infection, site not specified Status: Acute Assessment and Plan: UA abnormal Blood and urine culture Patient is currently on IV Zosyn. continue for now RLX UR CX DUE TO ABN UA R82.90 Final 01/09/25-1638 Q SOURCE: URINE, CLEAN CATCH STATUS: FINAL RESULT: No Growth <Ekaterina Serrano RN - Last Filed: 01/11/25 13:56> Provider Comments no UTI, likely symptoms secondary to pancreatitis. will dc ABx <Melva Frankel MD - Last Filed: 01/11/25 14:20>
--- NOTE | 2025-01-11 14:20 | P.PNIM_ITS ---
Progress Note: A&P Assessment and Plan (1) Acute alcoholic pancreatitis: Code(s): K85.20 - Alcohol induced acute pancreatitis without necrosis or infection Status: Acute Assessment and Plan: Presented with elevated lipase CT scan IMPRESSION: 1. Pancreatitis involving the body and tail of the pancreas. Surrounding fat stranding and minimal fluid is noted. 2. Slightly dilated jejunal loops. Follow-up advised. 3. No evidence of appendicitis or diverticulitis. 4. Fat infiltration of the liver. Hepatomegaly. on soft diet Pain control GI team on board (2) Hypertension: Code(s): I10 - Essential (primary) hypertension Status: Acute Assessment and Plan: Coreg (3) Alcoholic hepatitis: Code(s): K70.10 - Alcoholic hepatitis without ascites Status: Acute Assessment and Plan: Elevated LFTs secondary to alcoholic hepatitis. Levels improving. Monitor Hepatitis panel negative (4) Electrolyte abnormality: Code(s): E87.8 - Other disorders of electrolyte and fluid balance, not elsewhere classified Status: Acute Assessment and Plan: Replace low Mag as needed (5) Alcohol withdrawal seizure: Code(s): F10.939 - Alcohol use, unspecified with withdrawal, unspecified; R56.9 - Unspecified convulsions Status: Acute Assessment and Plan: History of heavy alcohol intake for long time now presented with alcohol withdrawal and alcohol withdrawal seizure IV fluids Rapid response was called on 01/09/2025 because of seizure. Patient received phenobarb and Valium and transferred to ICU CIWA score monitor P.r.n. IV IV thiamine folic acid librium (6) Alcohol withdrawal: Code(s): F10.939 - Alcohol use, unspecified with withdrawal, unspecified Status: Acute Assessment and Plan: See above (7) Ileus: Code(s): K56.7 - Ileus, unspecified Status: Acute Assessment and Plan: resolved CT scan suggest ileus likely from pancreatitis. Patient also presented with nausea vomiting Has NGT (8) Thrombocytopathia: Code(s): D69.1 - Qualitative platelet defects Status: Acute Assessment and Plan: In setting of alcohol abuse Monitor for now (9) Malnutrition: Code(s): E46 - Unspecified protein-calorie malnutrition Status: Acute Assessment and Plan: consult dietitian Subjective Date/time seen: 01/11/25 14:20 Interval history: per hPI: 44 yo male with PMH of HTN, GERD and alcohol abuse who presented to the ER on account of abd pain. Described as sharp upper abdominal region, 10/10 intensity, no radiation but associated with profuse vomiting the past 3 days. Noted l ightheadedness but denies any Chest pain, SOB, dysuria, and LOC. Er eval notable for BP 148/105, labs notable for AST 1076, ALT 398, Bili 5.3, and Lipase 867, CT AP showed pancreatitis involving the body and tail of the pancreas and fat infiltrationi of the liver. INR 0.8. GI was consulted prior to admission 01/09/25 Patient was seen and examined at bedside. Rapid response was called early AM because of alcohol withdrawal seizure. The patient received Valium on phenobarbital. Patient was transferred to ICU for further management. Patient also has pancreatitis. NG tube in place. Continue with CIWA protocol Continue IV antibiotics for sepsis/UTI. 01/10/25 Patient was seen and examined at bedside. He is more alert, oriented this morning. WBC 9.1, hemoglobin 13, platelet 65, potassium 3.2. Liver enzymes improving. Hepatitis panel negative. Blood culture pending. Started on clear liquid diet 01/11/25 Patient was seen and examined at bedside. He is feeling better. Abdominal pain improved. Denies any chest pain, SOB, abdominal pain, nausea vomit. Tolerating soft diet. Urine culture negative. Discussed with pharmacist. We SONIA Yost. Continue to monitor Review of Systems Review of Systems: All other systems were reviewed and negative except as noted in the HPI above ROS unobtainable: Yes unobtainable due to medical condition and unobtainable due to mental status Exam Narrative: General: Alert oriented Lungs/Chest: Trachea central Clear BS B/L, No crackles or wheezing. Cardiac: RRR. Normal S1 S2. No murmurs Circulation: Pedal pulses are intact and symmetrical. Abdomen: Present bowel sounds.. not tender Extremities: No clubbing, cyanosis or edema. Warm : Flower in place Skin: No Rash Objective Data Vital Signs Vital Signs: Vital Signs - 24 hr 01/10/25 16:00 01/10/25 16:00 01/10/25 16:00 Temperature 98.2 F Pulse Rate 76 71 Pulse Rate [Bilateral Radial Palpation] Pulse Rate [Monitor] 69 Respiratory Rate 18 Blood Pressure 135/94 H Pulse Oximetry 98 Oxygen Delivery 01/10/25 18:00 01/10/25 20:00 01/10/25 20:00 Temperature 98.2 F Pulse Rate 77 79 79 Pulse Rate [Bilateral Radial Palpation] Pulse Rate [Monitor] Respiratory Rate 18 Blood Pressure 155/111 H Pulse Oximetry 100 Oxygen Delivery 01/10/25 20:34 01/10/25 20:34 01/10/25 22:00 Temperature Pulse Rate 87 80 Pulse Rate [Bilateral Radial Palpation] Pulse Rate [Monitor] Respiratory Rate Blood Pressure Pulse Oximetry Oxygen Delivery Room Air 01/10/25 23:47 01/11/25 00:00 01/11/25 00:45 Temperature 98.1 F Pulse Rate 78 76 Pulse Rate [Bilateral Radial Palpation] Pulse Rate [Monitor] Respiratory Rate 18 Blood Pressure 144/87 H Pulse Oximetry 99 Oxygen Delivery Room Air 01/11/25 02:00 01/11/25 03:19 01/11/25 04:00 Temperature 98.3 F Pulse Rate 78 82 83 Pulse Rate [Bilateral Radial Palpation] Pulse Rate [Monitor] Respiratory Rate 20 Blood Pressure 154/98 H Pulse Oximetry 97 Oxygen Delivery 01/11/25 04:35 01/11/25 06:00 01/11/25 08:00 Temperature Pulse Rate 82 Pulse Rate [Bilateral Radial Palpation] Pulse Rate [Monitor] Respiratory Rate Blood Pressure Pulse Oximetry Oxygen Delivery Room Air Room Air 01/11/25 08:00 01/11/25 08:00 01/11/25 08:42 Temperature 98.3 F Pulse Rate 77 78 84 Pulse Rate [Bilateral Radial Palpation] Pulse Rate [Monitor] Respiratory Rate 16 Blood Pressure 153/96 H Pulse Oximetry 99 Oxygen Delivery 01/11/25 10:00 01/11/25 12:00 01/11/25 12:00 Temperature Pulse Rate 73 72 Pulse Rate [Bilateral Radial Palpation] 73 Pulse Rate [Monitor] Respiratory Rate Blood Pressure Pulse Oximetry Oxygen Delivery 01/11/25 12:00 Temperature 98.8 F Pulse Rate 74 Pulse Rate [Bilateral Radial Palpation] Pulse Rate [Monitor] Respiratory Rate 16 Blood Pressure 136/90 Pulse Oximetry 98 Oxygen Delivery Intake/Output Intake/Output: Intake & Output 01/08/25 01/09/25 01/10/25 01/11/25 23:59 23:59 23:59 23:59 Intake Total 1000 3802.8 1504 2140 Output Total 1550 1805 Balance 1000 2252.8 -301 2140 Meds/Results Medications: Active Medications Generic Name Dose Route Start Last Admin Trade Name Freq PRN Reason Stop Dose Admin Acetaminophen 650 mg 01/10/25 13:41 01/10/25 13:53 Acetaminophen 325 Mg Tablet PO 650 mg Q6H PRN Administration Mild Pain (1-3) or Fever Calcium Carbonate 200 mg 01/11/25 11:49 01/11/25 12:10 Calcium Carbonate (Tums) 500 Mg (200 Mg Elemental) PO 200 mg Q6H PRN Administration Indigestion Carvedilol 12.5 mg 01/08/25 21:00 01/11/25 08:42 Carvedilol 12.5 Mg Tablet PO 12.5 mg Q12HR MELLO Administration Chlordiazepoxide HCl 10 mg 01/10/25 07:40 01/11/25 06:37 Chlordiazepoxide (*Crx) 10 Mg Capsule PO 10 mg Q8HR MELLO Administration Dextrose 12.5 gm 01/09/25 19:39 01/09/25 19:51 Dextrose 50% 25 Gm/50 Ml Syringe IV PUSH 12.5 gm PRN PRN Administration Hypoglycemia Protocol Folic Acid 1 mg 01/09/25 09:00 01/11/25 08:42 Folic Acid 1 Mg/0.2 Ml Inj IV PUSH 1 mg QAM MELLO Administration Glucagon 1 mg 01/09/25 19:39 Glucagon For Inj 1 Mg Vial IM PRN PRN Hypoglycemia Protocol Glucose 15 gm 01/09/25 19:39 Glucose Oral Gel 15 Gm Of Glucse In 37.5 Gm Tube PO PRN PRN Hypoglycemia Protocol Hydralazine HCl 10 mg 01/08/25 14:17 Hydralazine Hcl 20 Mg/Ml Vial IV PUSH Q8H PRN Blood Pressure - High Dextrose 1,000 mls @ 100 mls/hr 01/09/25 19:39 Dextrose 5% 1,000 Ml IVPB PRN PRN Hypoglycemia Protocol Lorazepam 2 mg 01/09/25 08:23 Lorazepam Inj (*Crx) 2 Mg/Ml Vial IV PUSH Q1H PRN CIWA 8-14 Lorazepam 4 mg 01/09/25 08:23 Lorazepam Inj (*Crx) 2 Mg/Ml Vial IV PUSH Q1H PRN CIWA > 15 Morphine Sulfate 4 mg 01/08/25 13:21 01/10/25 22:30 Morphine Sulfate (*Crx) 4 Mg/Ml Inj IV PUSH 4 mg Q2H PRN Administration Pain Rated 7-10 Nicotine 1 patch 01/08/25 23:57 01/11/25 08:42 Nicotine (*Pbkc) 14 Mg Patch TRANSDERM 1 patch DAILY MELLO Administration Ondansetron HCl 4 mg 01/08/25 13:21 01/08/25 14:05 Ondansetron Inj 4 Mg/2 Ml Vial IV PUSH 4 mg Q4H PRN Administration Nausea Pantoprazole Sodium 40 mg 01/09/25 09:00 01/11/25 08:43 Pantoprazole Sodium Iv 40 Mg Vial IV PUSH 40 mg QAM MELLO Administration Pantoprazole Sodium 40 mg 01/08/25 14:26 Pantoprazole 40 Mg Tablet PO ONCE PRN acid reflux Sodium Phosphate 250 mg 01/11/25 13:00 Potassium Phos/Sodium Phos 250 Mg Tablet PO 01/12/25 08:00 TID MELLO Thiamine HCl 100 mg 01/10/25 09:00 01/11/25 08:43 Thiamine Hcl 200 Mg/2 Ml Vial IV PUSH 100 mg QAM MELLO Administration Radiology Results: ITS Impressions Abdomen Ultrasound 01/08/25 11:37 Impression: Hepatomegaly. Abdomen/Pelvis CT 01/08/25 11:51 IMPRESSION: 1. Pancreatitis involving the body and tail of the pancreas. Surrounding fat stranding and minimal fluid is noted. 2. Slightly dilated jejunal loops. Follow-up advised. 3. No evidence of appendicitis or diverticulitis. 4. Fat infiltration of the liver. Hepatomegaly. Abdomen X-Ray 01/09/25 10:02 IMPRESSION: 1. No gastric tube in stomach. ADDENDUM: 01/09/25 1056 CORRECTION: There is a dictation error in the impression section. With the correction capitalized this should read- 1. NASOGASTRIC tube in stomach. Labs Labs: Laboratory Results - last 24 hr 01/11/25 01/11/25 00:45 04:02 WBC 7.3 RBC 3.46 L Hgb 11.7 L Hct 34.4 L MCV 99.4 MCH 33.8 MCHC 34.0 RDW 13.2 Plt Count 81 L MPV 11.3 H % Immature Plt Fraction 9.7 Sodium 132 L Potassium 3.5 Chloride 98 Carbon Dioxide 29 Anion Gap 5 BUN < 2 L Creatinine 0.82 Estim Creat Clear Calc 105 Estimated GFR > 60 Glucose 93 POC Capillary Glucose 102 Calcium 7.7 L Phosphorus 1.9 L Magnesium 2.0 Total Bilirubin 3.3 H AST 129 H ALT 113 H Alkaline Phosphatase 100 Total Protein 6.4 Albumin 3.0 L Lipase 425 H
[2025-01-11] MEDS: POTASSIUM PHOS/SODIUM PHOS 250 MG TABLET PO ×2 (14:44→17:15)
--- NOTE | 2025-01-11 20:15 | PC.NURSE ---
This patient, Yusuf Taylor, was received from [[facility] on 01/11/25 at 2015. Patient/family oriented to unit policies and routines. Report received from KATIA Velez.
[2025-01-11 21:03] LABS: Influenza A QL RT-PCR Negative (Negative); Influenza B QL RT-PCR Negative (Negative); RSV RNA, RT-PCR Negative (Negative); SARS-CoV-2 RNA PCR Negative (Negative)
--- NOTE | 2025-01-11 22:52 | PC.NURSE ---
This patient, Yusuf Taylor, was transferred to [facility] on 01/11/25 at 2013. Personal belongings sent with patient. Report given to KATIA Perez. Appropriate documentation sent with patient.
[2025-01-12] VITALS: PULSE 75; RESP 18
[2025-01-12 04:00] VITALS: PULSE 70
[2025-01-12 04:19] VITALS: BP 139/107; PULSE 80; RESP 14; TEMP 36.4; O2SAT 100
[2025-01-12 05:30] LABS: Hematocrit 38.2 % (42.0-52.0); Hemoglobin 12.9 g/dL (14.0-18.0); Immature Platelet Fraction Pct 8.3 % (0.9-11.2); Mean Corpuscular HGB Conc 33.8 g/dl (32-36); Mean Corpuscular Hemoglobin 33.7 pg (26-34); Mean Corpuscular Volume 99.7 fl (80-100); Mean Platelet Volume 10.6 fl (7.4-10.4); Platelet Count Result 145 k/mm3 (150-375); Red Blood Count 3.83 M/mm3 (4.6-6.20); Red Cell Distribution Width 13.3 % (11.5-14.5); White Blood Count 9.4 K/mm3 (4.5-10.0)
[2025-01-12 05:58] LABS: Alanine Aminotransferase 135 U/L (6-50); Albumin Level 3.6 g/dL (3.5-5.1); Alkaline Phosphatase 147 U/L (38-126); Anion Gap 8 mmol/L (4-12); Aspartate Amino Transferase 158 U/L (17-59); Bilirubin,Total 2.1 mg/dL (0.2-1.3); Blood Urea Nitrogen 3 mg/dL (9-20); Calcium 8.8 mg/dL (8.4-10.2); Carbon Dioxide 29 mmol/L (22-30); Chloride 98 mmol/L (98-107); Estimated CRCL calculation 103 ml/min; Estimated Glomerular Filt Rate > 60; Glucose 113 mg/dL (65-110); Magnesium 1.8 mg/dL (1.6-2.3); Potassium 3.3 mmol/L (3.4-5.0); Sodium 135 mmol/L (137-145); Total Protein 7.6 g/dL (6.3-8.2)
[2025-01-12] MEDS: chlordiazePOXIDE (*CRX) 10 MG CAPSULE PO (05:58)
[2025-01-12] MEDS: NICOTINE (*PBKC) 14 MG PATCH 1 PATCH TRANSDERM (07:35)
[2025-01-12 08:00] VITALS: BP 136/96; PULSE 78; PULSE 81; RESP 16; TEMP 36.4; O2SAT 100
[2025-01-12] MEDS: PANTOPRAZOLE SODIUM IV 40 MG VIAL IV PUSH (08:00)
[2025-01-12 08:01] VITALS: PULSE 87
[2025-01-12] MEDS: THIAMINE HCL 200 MG/2 ML VIAL 100 MG IV PUSH (08:01)
[2025-01-12] MEDS: carvediloL 12.5 MG TABLET PO (08:01)
[2025-01-12] MEDS: POTASSIUM CHLORIDE 20 MEQ PACKET (FOR LIQUID) 40 MEQ PO (08:48)
[2025-01-12] MEDS: FOLIC ACID 1 MG/0.2 ML INJ IV PUSH (08:49)
--- NOTE | 2025-01-12 10:52 | P.DS_ITS ---
DS: Admitting Diagnosis Discharge Date 01/12/25 Admitting Diagnosis Abd pain/Pancreatitis DS: Discharge Diagnosis Discharge Diagnosis (1) Acute alcoholic pancreatitis: Code(s): K85.20 - Alcohol induced acute pancreatitis without necrosis or infection Status: Acute Assessment and Plan: Presented with elevated lipase CT scan IMPRESSION: 1. Pancreatitis involving the body and tail of the pancreas. Surrounding fat stranding and minimal fluid is noted. 2. Slightly dilated jejunal loops. Follow-up advised. 3. No evidence of appendicitis or diverticulitis. 4. Fat infiltration of the liver. Hepatomegaly. on tolerated diet Pain control GI team on board (2) Hypertension: Code(s): I10 - Essential (primary) hypertension Status: Acute Assessment and Plan: Coreg (3) Alcoholic hepatitis: Code(s): K70.10 - Alcoholic hepatitis without ascites Status: Acute Assessment and Plan: Elevated LFTs secondary to alcoholic hepatitis. Levels improving. Monitor Hepatitis panel negative (4) Electrolyte abnormality: Code(s): E87.8 - Other disorders of electrolyte and fluid balance, not elsewhere classified Status: Acute Assessment and Plan: Replace low Mag as needed (5) Alcohol withdrawal seizure: Code(s): F10.939 - Alcohol use, unspecified with withdrawal, unspecified; R56.9 - Unspecified convulsions Status: Acute Assessment and Plan: History of heavy alcohol intake for long time now presented with alcohol withdrawal and alcohol withdrawal seizure IV fluids Rapid response was called on 01/09/2025 because of seizure. Patient received phenobarb and Valium and transferred to ICU CIWA score monitor P.r.n. po folic acid Librium tapering (6) Alcohol withdrawal: Code(s): F10.939 - Alcohol use, unspecified with withdrawal, unspecified Status: Acute Assessment and Plan: See above (7) Ileus: Code(s): K56.7 - Ileus, unspecified Status: Acute Assessment and Plan: resolved CT scan suggest ileus likely from pancreatitis. Patient also presented with nausea vomiting (8) Thrombocytopathia: Code(s): D69.1 - Qualitative platelet defects Status: Acute Assessment and Plan: In setting of alcohol abuse Monitor for now (9) Malnutrition: Code(s): E46 - Unspecified protein-calorie malnutrition Status: Acute DS: Summary Hospital Course Hospital Course: 44 yo male with PMH of HTN, GERD and alcohol abuse who presented to the ER on account of abd pain. Described as sharp upper abdominal region, 10/10 intensity, no radiation but associated with profuse vomiting the past 3 days. Noted lightheadedness but denies any Chest pain, SOB, dysuria, and LOC. Er eval notable for BP 148/105, labs notable for AST 1076, ALT 398, Bili 5.3, and Lipase 867, CT AP showed pancreatitis involving the body and tail of the pancreas and fat infiltrationi of the liver. INR 0.8. GI was consulted prior to admission 01/09/25 Patient was seen and examined at bedside. Rapid response was called early AM because of alcohol withdrawal seizure. The patient received Valium on phenobarbital. Patient was transferred to ICU for further management. Patient also has pancreatitis. NG tube in place. Continue with CIWA protocol Continue IV antibiotics for sepsis/UTI. 01/10/25 Patient was seen and examined at bedside. He is more alert, oriented this morning. Hepatitis panel negative. Blood culture neg Started on clear liquid diet 01/11/25 Tolerating soft diet. Urine culture negative. Discussed with pharmacist. We SONIA Yost. 01/12/25 Patient was seen and examined at bedside. He is feeling better. Abdominal pain improved. Denies any chest pain, SOB, abdominal pain, nausea vomit. tolerated regular diet. CIWA score 0. Status at Discharge Overall status at discharge: patient is back to baseline Time Spent with Patient Time attestation: Total time spent providing and/or coordinating discharge services: Time spent: Greater than 30 minutes Exam Narrative: General: Alert oriented Lungs/Chest: Trachea central Clear BS B/L, No crackles or wheezing. Cardiac: RRR. Normal S1 S2. No murmurs Circulation: Pedal pulses are intact and symmetrical. Abdomen: Present bowel sounds.. not tender Extremities: No clubbing, cyanosis or edema. Warm : Flower in place Skin: No Rash DS: Data Data Completed and Pending Labs on day of discharge: Labs from last 24 hours 01/12/25 01/11/25 04:33 20:21 WBC 9.4 RBC 3.83 L Hgb 12.9 L Hct 38.2 L MCV 99.7 MCH 33.7 MCHC 33.8 RDW 13.3 Plt Count 145 L D MPV 10.6 H % Immature Plt Fraction 8.3 Sodium 135 L Potassium 3.3 L Chloride 98 Carbon Dioxide 29 Anion Gap 8 BUN 3 L Creatinine 0.83 Estim Creat Clear Calc 103 Estimated GFR > 60 Glucose 113 H Calcium 8.8 Phosphorus 3.0 Magnesium 1.8 Total Bilirubin 2.1 H AST 158 H ALT 135 H Alkaline Phosphatase 147 H Total Protein 7.6 Albumin 3.6 Influenza A (RT-PCR) Negative Influenza B (RT-PCR) Negative RSV (RT-PCR) Negative SARS-CoV-2 RNA (RT-PCR) Negative Preliminary micro results at discharge 01/09/25 08:48 Blood Culture - Preliminary Blood 01/09/25 08:38 Blood Culture - Preliminary Blood Discharge Plan Discharge Attending physician on discharge: Melva Frankel Consulting providers: Lior Hoskins Discharging Clinician: Melva Frankel Anticipated Discharge Date/Time: 01/12/25 10:46 Patient Disposition: Home Activity: as tolerated Diet: as tolerated Discharge Instructions: check your blood pressure and heart rate regularly and report to PCP follow with PCP in one week repeat blood test in 2-3 days and report to PCP Quit alcohol Patient Instructions: Antibiotic Form Patient Language: Divehi Stand Alone Forms: General Discharge Information Follow-up/Referrals: Blayne,MD Garrett [Primary Care Provider] - 1 Week Discharge Medications: New chlordiazepoxide HCl 10 mg Capsule 10 mg PO BID Qty: 3 0RF multivitamin Tablet 1 tablet PO DAILY Qty: 30 0RF folic acid 0.8 mg capsule 0.8 mg PO DAILY Qty: 30 0RF Continued omeprazole magnesium [Acid [employer] (omeprazole)] 20 mg capsule,delayed release(DR/EC) 20 mg PO ONCE PRN (Reason: acid reflux) carvedilol 12.5 mg tablet 12.5 mg PO Q12H albuterol sulfate 90 mcg/actuation HFA aerosol inhaler 1 inh INHALATION QID PRN (Reason: bronchospasm ) No Action No Home Medications Other Ambulatory Orders: Comprehensive Metabolic Panel (Routine) Timeframe: 2 Days Location: Determined by Patient Ordered By: Melva Frankel Date of admission: 01/09/25 10:19 Primary Care Provider: JulissaGarrett Admitting Provider: Tj Bonds Attending physician on admission: Melva Frankel Condition: Serious
== END 2025-01-12 11:07 | disposition home or self-care (01) | DRG 896 ==
LOC: ANHED 13:33 → ANH2MED 16:37 → ANHICU 01-09 07:01 → ANHIMU 01-10 15:49 → ANH2MED 01-11 20:14
PROVIDERS: Internal Medicine; Admitting Provider Internal Medicine; Emergency Provider Emergency Medicine; PCP Internal Medicine; Visit Provider Internal Medicine
DX: F10.139 Alcohol abuse with withdrawal, unspecified (principal); K85.20 Alcohol induced acute pancreatitis without necrosis or infection; E46 Unspecified protein-calorie malnutrition; K56.7 Ileus, unspecified; K70.10 Alcoholic hepatitis without ascites; R56.9 Unspecified convulsions; I10 Essential (primary) hypertension; E83.119 Hemochromatosis, unspecified; K21.9 Gastro-esophageal reflux disease without esophagitis; Z20.822 Contact with and (suspected) exposure to COVID-19; Z68.24 Body mass index [BMI] 24.0-24.9, adult; E83.42 Hypomagnesemia; D69.1 Qualitative platelet defects
CPT/HCPCS: 36415; 74177; 76705; 80053; 80061; 80074; 81001; 82948; 83605; 83690; 83735; 84100; 84145; 85025; 85027; 85055; 85610; 85730; 87040; 87086; 87637; 87641; 96361; 96374; 96375; 96376; 99285; A9270; G0378; J1885; J2060; J2270; J2405; J2470; J2543; J2560; J3360; J3411; J3475; J3480; J7030; J7120; J7121; Q9967

== ENCOUNTER 2025-03-31 13:03 | Outpatient (CLI) | payer OTHER, SELFPAY ==
--- NOTE | 2025-03-31 | ECHO_ITS ---
Patient Info Name: Yusuf Taylor Age: 44 years : 1980 Gender: Male Ht: 71 in Wt: 172 lbs BSA: 1.98 m2 HR: 69 bpm BP: 119 / 81 mmHg Heart Rhythm: Sinus Rhythm Technical Quality: Good Exam Date: 03/31/2025 1:22 PM Patient Status: O Admit Date: 03/31/2025 Exam Type: CA echo doppler color flow Complete two-dimensional, color flow and Doppler transthoracic echocardiogram is performed. Knife Setter: Salvatore Cortes III Attending Provider: Salomón Cisneros Summary 1. Complete two-dimensional, color flow and Doppler transthoracic echocardiogram is performed. 2. Trivial amount of aortic valve regurgitation, anatomically normal appearing valve. 3. Otherwise normal echocardiogram. Left Ventricle Left ventricular chamber dimension is normal. Left ventricular systolic function is normal, estimated at 60-65. The left ventricular diastolic function is normal. Right Ventricle Right ventricular chamber dimension is normal. Left Atria Left atrial chamber dimension is normal. Right Atria Right atrial chamber dimension is normal. Aortic Valve The aortic valve is normal. There is trace aortic valve regurgitation. Pulmonic Valve The pulmonic valve is normal. Mitral Valve The mitral valve has normal leaflets. Tricuspid Valve The tricuspid valve leaflets are normal. Pericardium/Pleural The pericardium appears normal. Aorta The aortic root size at the sinus of Valsalva is normal. Left Ventricular Outflow Tract Name Value Normal LVOT 2D LVOT Diameter 2.4 cm LVOT Doppler LVOT Peak Velocity 97 cm/s LVOT Peak Gradient 4 mmHg LVOT Mean Gradient 2 mmHg LVOT VTI 20 cm LVOT VTI/AV VTI Ratio 0.8 LVOT Stroke Volume 94 ml LVOT CO 18.4 l/min LVOT CI 9.3 l/min/m2 Pulmonic Valve Name Value Normal PV Doppler PV Peak Velocity 113 cm/s PV Peak Gradient 5 mmHg PV Mean Gradient 3 mmHg Mitral Valve Name Value Normal MV Doppler MV Peak Gradient 4 mmHg MV Mean Gradient 2 mmHg MV Area (Cont Eq VTI) 3.0 cm2 MV Diastolic Function MV E Peak Velocity 93 cm/s MV A Peak Velocity 54 cm/s MV E/A 1.7 MV Decel Time (PW) 248 ms MV Annular TDI MV E/e' (Septal) 6.2 MV E/e' (Lateral) 6.1 MV E/e' (Average) 6.2 Tricuspid Valve Name Value Normal TV Annular TDI TV Lateral Josey s' Velocity 15.2 cm/s >=9.5 Aortic Valve Name Value Normal AV Doppler AV Peak Velocity 128 cm/s AV Peak Gradient 7 mmHg AV Mean Gradient 3 mmHg AV VTI 25 cm AV Area (Cont Eq VTI) 3.8 cm2 >=3.0 AV Area (Cont Eq Brooks) 3.5 cm2 AV DI (Brooks) 0.76 AV Regurgitation 2D LVOT Area 4.6 cm2 Ventricles Name Value Normal LV Dimensions 2D/MM IVS Diastolic Thickness (2D) 0.9 cm 0.6-1.0 LVID Diastole (2D) 5.0 cm 4.2-5.8 LVIW Diastolic Thickness (2D) 0.9 cm 0.6-1.0 LVID Systole (2D) 3.6 cm 2.5-4.0 LVOT Diameter 2.4 cm LV Mass (2D Cubed) 154.07 g 88.00-224.00 LV Mass Index (2D Cubed) 78 g/m2 49-115 Relative Wall Thickness (2D) 0.35 <=0.42 LV Fractional Shortening/Ejection Fraction 2D/MM LV Fractional Shortening (2D) 27 % 25-43 LV EF (2D Teichholz) 52 % LV Diastolic Volume (4C MOD) 157 ml LV EF (4C MOD) 56 % LV Diastolic Volume (2C MOD) 106 ml LV EF (2C MOD) 57 % LV Diastolic Volume (BP MOD) 129 ml 62-150 LV Diastolic Volume Index (BP MOD) 65 ml/m2 34-74 LV Systolic Volume (BP MOD) 58 ml 21-61 LV Systolic Volume Index (BP MOD) 29 ml/m2 11-31 LV EF (BP MOD) 55 % 52-72 LV Diastolic Length (4C) 9.1 cm LV Systolic Length (4C) 6.7 cm LV Stroke Volume (4C MOD) 87 ml Atria Name Value Normal LA Dimensions LA Volume (4C A-L) 47 ml LA Volume (BP A-L) 59 ml RA Dimensions RA Systolic Major [place] Length (4C) 4.6 cm 2.1-2.7 RA Area (4C) 13.8 cm2 <=18.0 Report Signatures
--- OUTSIDE RECORDS SUMMARY | 2025-03-31 13:42 | XMS_ITS | Clinical Summary ---
Author Organization [facility] uis Address [address] [place] [address] Phone Care Team Providers Care Spring Bender Name Role Phone Unavailable Primary Care Provider Unavailabl e Allergies No known active allergies Medications No known medications Encounters Date Type Department Care Team Description 03/30/2025 External Device Data [facility] ABSTRACTION Provider, Abstract 03/30/2025 External Device Data [facility] ABSTRACTION Provider, Abstract 03/10/2025 External Device Data [facility] ABSTRACTION Provider, Abstract 02/24/2025 External Device Data [facility] ABSTRACTION Provider, Abstract 02/23/2025 External Device Data [facility] ABSTRACTION Provider, Abstract 02/23/2025 External Device Data [facility] ABSTRACTION Provider, Abstract 02/03/2025 External Device Data [facility] ABSTRACTION Provider, Abstract 01/26/2025 External Device Data [facility] ABSTRACTION Provider, Abstract 01/26/2025 External Device Data [facility] ABSTRACTION Provider, Abstract 01/26/2025 External Device Data [facility] ABSTRACTION Provider, Abstract 01/06/2025 External Device Data [facility] ABSTRACTION Provider, Abstract 01/05/2025 External Device Data [facility] ABSTRACTION Provider, Abstract 01/05/2025 External Device Data [facility] ABSTRACTION Provider, Abstract 12/30/2024 4:53 PM CDT - 12/31/2024 12:25 AM CDT Emergency [facility] Emergency Department [address] [place] [address] Pedrito Barrow DO Harmon, Elizabeth Ann, MD Chest pain, unspecified type (Primary Dx) Discharge Disposition: Home or Self Care 12/30/2024 Travel from Last 3 Months Social History Tobacco Use Types Packs/Day Years Used Date Smoking Tobacco: Every Day Cigarettes Tobacco Cessation:Ready to Q uit: Not Asked; Counseling Given: Not Answered Alcohol Use Standard Drinks/Week Comments Yes 0 (1 standard drink = 0.6 oz pur e alcohol) Feeling Safe Answer Date Recorded Are you in a relationship wi th someone who hurts you emotionally and/or physically? No 12/30/2024 Sex and Gender Information Value Date Recorded Sex Assigned at Not on file Legal Sex Male 3:35 PM CDT Gender Identity Not on file Sexual Orientation Not on file Last Filed Vital Signs Vital Sign Reading Time Taken Comments Blood Pressure 167/113 12/31/2024 12:00 AM CDT Pulse 60 12/31/2024 12:24 AM CDT Temperature 36.7 C (98 F) 12/31/2024 12:24 AM CDT Respiratory Rate 18 12/31/2024 12:00 AM CDT Oxygen Saturation 98% 12/31/2024 12:24 AM CDT Inhaled Oxygen Concentration - - Weight - - Height - - Body Mass Index - - Plan of Treatment Health Maintenance Due Date Last Done Comments DTAP/TDAP/TD VACCINES (1 - Tdap) 2000 HEPATITIS B VACCINES (1 of 3 - 19+ 3-dose series) 11/1999 HPV VACCINES (1 - 3-dose SCDM series) 2008 INFLUENZA VACCINE (#1) 2025 Procedures Procedure Name Priority Date/Time Associated Diagnosis Comments TROPONIN BASELINE, 5TH GEN Stat 12/30/2024 10:55 PM CDT XR CHEST PA AND LATERAL 2 VW Stat 12/30/2024 10:34 PM CDT CTA CHEST + ABD/PEL W CONTRAST Stat 12/30/2024 9:06 PM CDT POC CREATININE Stat 12/30/2024 8:53 PM CDT LIPASE Stat 12/30/2024 6:54 PM CDT COMPREHENSIVE METABOLIC PANEL Stat 12/30/2024 6:54 PM CDT CBC WITH DIFFERENTIAL Stat 12/30/2024 6:54 PM CDT EKG 12-LEAD Stat 12/30/2024 3:43 PM CDT from Last 3 Months Results * TROPONIN BASELINE, 5TH GEN (12/30/2024 10:55 PM CDT) TROPONIN T, BASELINE 5TH GEN <6 <=15 ng/L 12/31/2024 12:06 AM CDT [facility] Blood Venipuncture / Unknown 12/30/2024 10:55 PM CDT 12/30/2024 11:01 PM CDT Narrative [facility] - 12/31/2024 12:06 AM CDT Troponin Undetectable Pedrito Barrow DO CHEMISTRY ORDERABLES Final Resul t [facility]# [id number] [address] [place] [address] * XR CHEST PA AND LATERAL 2 VW (12/30/2024 10:34 PM CDT) Anatomical Region Laterality Modality Chest Computed Radiogr aphy 12/30/2024 10:3 4 PM CDT Impressions 12/30/2024 10:37 PM CDT IMPRESSION: 1. No acute cardiopulmonary process. DICTATION LOCATION: Location 1 - [facility] Narrative 12/30/2024 10:37 PM CDT CHEST, 2 VIEWS DATE: 12/30/2024 10:34 PM HISTORY: Chest Pain, Comment: triage. See Reason for Exam COMPARISON: No relevant prior studies are available. FINDINGS: Frontal and lateral views of the chest are submitted. Lungs: No focal consolidation or edema. Pleural Spaces: No pneumothorax or substantive pleural effusion. Heart and Mediastinum: The heart size is normal. Mediastinal contours are within expected limits. Bones: Unremarkable. Procedure Note Ike CHAVARRIA, Del Nickerson MD - 12/30/2024 CHEST, 2 VIEWS DATE: 12/30/2024 10:34 PM HISTORY: Chest Pain, Comment: triage. See Reason for Exam COMPARISON: No relevant prior studies are available. FINDINGS: Frontal and lateral views of the chest are submitted. Lungs: No focal consolidation or edema. Pleural Spaces: No pneumothorax or substantive pleural effusion. Heart and Mediastinum: The heart size is normal. Mediastinal contours are within expected limits. Bones: Unremarkable. IMPRESSION: 1. No acute cardiopulmonary process. DICTATION LOCATION: Location 1 - [facility] us Protocol [facility] Emergency MD DIAGNOSTIC IMAGING O RDERABLES Final Result * CTA CHEST + ABD/PEL W CONTRAST (12/30/2024 9:06 PM CDT) Anatomical Region Laterality Modality Chest, Abdomen, Pelvis Computed Tomography 12/30/2024 8:57 PM CDT Impressions 12/30/2024 9:14 PM CDT IMPRESSION: 1. No pulmonary embolus. DICTATION LOCATION: Location 4. Narrative 12/30/2024 9:14 PM CDT EXAMINATION: CTA CHEST + ABD/PEL W CONTRAST DATE: 12/30/2024 9:06 PM INDICATION: Left chest and abdominal pain. TECHNIQUE: Computed tomography angiography (CTA) of the chest was performed with 90 mL Isovue-300 intravenous contrast. 3D-reconstructions were created by the technologist. Computed tomography (CT) of the abdomen and pelvis was performed with intravenous contrast. The mA was adjusted according to patient size, and/or iterative reconstruction technique was employed. COMPARISON: None. FINDINGS: CTA chest: There is no pneumonia or pleural effusion. The heart size is normal. No pericardial effusion. There is bilateral gynecomastia. There is no pulmonary embolus. The aorta is normal. There is mild thoracic spondylosis. CT abdomen and pelvis: The liver, gallbladder, spleen, pancreas, adrenal glands, and kidneys are normal. There is diverticulosis of the colon without evidence of diverticulitis. There are no dilated loops of bowel. The appendix is not visualized. There are no pathologically enlarged lymph nodes. There is no free intraperitoneal fluid. There is mild lumbar spondylosis. Procedure Note Tulio Venegas MD - 12/30/2024 EXAMINATION: CTA CHEST + ABD/PEL W CONTRAST DATE: 12/30/2024 9:06 PM INDICATION: Left chest and abdominal pain. TECHNIQUE: Computed tomography angiography (CTA) of the chest was performed with 90 mL Isovue-300 intravenous contrast. 3D-reconstructions were created by the technologist. Computed tomography (CT) of the abdomen and pelvis was performed with intravenous contrast. The mA was adjusted according to patient size, and/or iterative reconstruction technique was employed. COMPARISON: None. FINDINGS: CTA chest: There is no pneumonia or pleural effusion. The heart size is normal. No pericardial effusion. There is bilateral gynecomastia. There is no pulmonary embolus. The aorta is normal. There is mild thoracic spondylosis. CT abdomen and pelvis: The liver, gallbladder, spleen, pancreas, adrenal glands, and kidneys are normal. There is diverticulosis of the colon without evidence of diverticulitis. There are no dilated loops of bowel. The appendix is not visualized. There are no pathologically enlarged lymph nodes. There is no free intraperitoneal fluid. There is mild lumbar spondylosis. IMPRESSION: 1. No pulmonary embolus. DICTATION LOCATION: Location 4. Pedrito Barrow DO CT ORDERABLES Final Result * POC CREATININE (12/30/2024 8:53 PM CDT) Pathologist [facility] CREATININE POC 1.00 0.70 - 1.20 mg/dL 12/30/2024 8:53 PM CDT [facility] GFR POC >60 >=60 mL/min/1.7 3 sq meter 12/30/2024 8:53 PM CDT [facility] Comment:eGFR calculated with 2020 CKD-EPI equation. Vegetarian diet, extremely high or low muscle mass, and may affect results. Cystatin C with Glomerular Filtration Rate is a suitable alternative for these patients. Blood, whole 12/30/2024 8:53 PM CDT 12/30/2024 8:57 PM CDT Veronique Peterson MD POINT OF CARE TESTING Fi nal Result [facility] [email or web address] [facility] CLIA# [id number] [address] [facility] [place] [address] * (ABNORMAL) CBC WITH DIFFERENTIAL (12/30/2024 6:54 PM CDT) Pathologist [facility] WBC 6.3 4.0 - 9.8 K/uL 12/30/2024 7:39 PM CDT [facility] RBC 4.39(L) 4.50 - 5.40 M/uL 12/30/2024 7:39 PM CDT [facility] HEMOGLOBIN 15.0 13.6 - 16.5 g/dL 12/30/2024 7:39 PM CDT [facility] HEMATOCRIT 42.3 40.0 - 48.0 % 12/30/2024 7:39 PM CDT [facility] MCV 96.4 82.0 - 99.0 fL 12/30/2024 7:39 PM CDT [facility] MCH 34.2(H) 27.2 - 32.6 pg 12/30/2024 7:39 PM CDT [facility] MCHC 35.5 31.5 - 35.5 g/dL 12/30/2024 7:39 PM CDT [facility] RDW 12.9 11.5 - 14.5 % 12/30/2024 7:39 PM CDT [facility] RDW-STDEV 45.8 37.1 - 48.7 fL 12/30/2024 7:39 PM CDT [facility] PLATELETS 157 140 - 350 K/uL 12/30/2024 7:39 PM CDT [facility] MPV 10.1 9.3 - 12.4 fL 12/30/2024 7:39 PM CDT [facility] NEUTROPHILS 47 % 12/30/2024 7:39 PM CDT [facility] LYMPHOCYTES 38 % 12/30/2024 7:39 PM CDT [facility] MONOCYTES 15 % 12/30/2024 7:39 PM CDT [facility] EOSINOPHILS 1 % 12/30/2024 7:39 PM CDT [facility] BASOPHILS 0 % 12/30/2024 7:39 PM CDT [facility] IMMATURE GRANULOCYTES 0 % 12/30/2024 7:39 PM CDT [facility] NEUTROPHIL ABSOLUTE 2.94 1.90 - 7.00 K/uL 12/30/2024 7:39 PM CDT [facility] LYMPHOCYTE ABSOLUTE 2.35 0.70 - 4.50 K/uL 12/30/2024 7:39 PM CDT [facility] MONOCYTE ABSOLUTE 0.91 0.10 - 1.30 K/uL 12/30/2024 7:39 PM CDT [facility] EOSINOPHIL ABSOLUTE 0.04 0.00 - 0.70 K/uL 12/30/2024 7:39 PM CDT [facility] BASOPHILS ABSOLUTE 0.02 0.00 - 0.20 K/uL 12/30/2024 7:39 PM CDT [facility] IMMATURE GRANULOCYTES ABSOLUTE 0.01 0.00 - 0.03 K/uL 12/30/2024 7:39 PM CDT [facility] Blood Venipuncture / Unknown 12/30/2024 6:54 PM CDT 12/30/2024 7:27 PM CDT us Pedrito Barrow DO HEMATOLOGY ORDERABLES Final Resu lt [facility] CLIA# [id number] [address] [facility] [place] [place] [address] * (ABNORMAL) LIPASE (12/30/2024 6:54 PM CDT) LIPASE 63(H) 13 - 60 U/L 12/30/2024 8:10 PM CDT [facility] Blood Venipuncture / Unknown 12/30/2024 6:54 PM CDT 12/30/2024 7:27 PM CDT Pedrito Barrow DO CHEMISTRY ORDERABLES Final Resul t [facility] CLIA# [id number] [address] [facility] [place] [address] * (ABNORMAL) COMPREHENSIVE METABOLIC PANEL (12/30/2024 6:54 PM CDT) [facility] SODIUM 138 136 - 145 mmol/L 12/30/2024 8:11 PM CDT [facility] POTASSIUM 4.0 3.5 - 5.0 mmol/L 12/30/2024 8:11 PM T [facility] Comment:Moderate hemolysis p resent. Can cause significant falsely elevated result. Redraw if indicated. CHLORIDE 98 98 - 107 mmol/L 12/30/2024 8:11 PM CDT [facility] - . [facility] CO2 23 22 - 29 mmol/L 12/30/2024 8:11 PM T [facility] CALCIUM 9.3 8.6 - 10.2 mg/dL 12/30/2024 8:11 PM T [facility]. [facility] BUN 12 6 - 20 mg/dL 12/30/2024 8:11 PM T [facility] CREATININE 0.96 0.67 - 1.17 mg/dL 12/30/2024 8:11 PM T [facility]. [facility] GLUCOSE 104(H) 74 - 99 mg/dL 12/30/2024 8:11 PM T [facility]. [facility] TOTAL PROTEIN 7.9 6.7 - 8.6 g/dL 12/30/2024 8:11 PM T [facility]. [facility] ALBUMIN 4.2 3.5 - 5.2 g/dL 12/30/2024 8:11 PM T [facility]. [facility] BILIRUBIN TOTAL 1.4(H) 0.0 - 1.2 mg/dL 12/30/2024 8:11 PM T [facility] - . [facility] ALKALINE PHOSPHATASE 108 40 - 129 U/L 12/30/2024 8:11 PM T [facility]. [facility] AST 12/30/2024 8:11 PM T [facility] Comment:Test cannot be perfo rmed. Sample hemolysis interference above limits. Redraw if indicated. ALT 62(H) <42 U/L 12/30/2024 8:11 PM CDT [facility] Comment:Hemolysis present. R esult may be falsely elevated. GFR >60 >=60 mL/min/1.7 3 sq meter 12/30/2024 8:11 PM CDT [facility] Comment:eGFR calculated with 2020 CKD-EPI equation. Vegetarian diet, extremely high or low muscle mass, and may affect results. Cystatin C with Glomerular Filtration Rate is a suitable alternative for these patients. ANION GAP 17(H) 8 - 16 mmol/L 12/30/2024 8:11 PM CDT [facility] Blood Venipuncture / Unknown 12/30/2024 6:54 PM CDT 12/30/2024 7:27 PM CDT Narrative [facility] - 12/30/2024 8:11 PM CDT Samples containing indocyanine green cause interferences on Total and/or Direct Bilirubin and must not be measured. Pedrito Barrow DO CHEMISTRY ORDERABLES Final Resul t [facility] CLIA# [id number] [address] 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1980 Requested By: Order Number: [id number] Reading MD: Pete Astorga Measurements Intervals [place] Rate: 82 P: 39 AK: 144 QRS: 69 QRSD: 95 T: 50 QT: 398 QTc: 465 Interpretive Statements Sinus rhythm Probable left ventricular hypertrophy Electronically Signed On 12-30-2024 17:11:26 CDT by Pete Astorga Procedure Note Pete Astorga MD - 12/30/2024 [facility] [address] , [place] [address] Test Date: 2024-12-30 Pat Name: LI IRENE Department: 41 Room: Gender: Male Production Cloth Cutter: [id number] : 1980 Requested By: Order Number: [id number] Reading MD: Pete Astorga Measurements Intervals [place] Rate: 82 P: 39 AK: 144 QRS: 69 QRSD: 95 T: 50 QT: 398 QTc: 465 Interpretive Statements Sinus rhythm Probable left ventricular hypertrophy Electronically Signed On 12-30-2024 17:11:26 CDT by Pete Astorga us Pedrito Barrow DO ECG ORDERABLES Final Result INTERFACE SYSTEM Refer to clinic/hospital department from Last [address] [facility] [employer] PPO [id number]
--- OUTSIDE RECORDS SUMMARY | 2025-03-31 13:42 | XMS_ITS | Encounter Summary ---
Author Organization [facility] Address [address] [place] [address] Care Team Providers Care News Anchor Name Role Phone Unavailable Primary Care Provider Unavailabl e Encounter Details Date Type Department Care Team (Late st Contact Info) Description 03/30/2025 External Device Data [facility] ABSTRACTION Provider, Abstract NO ADDRESS ON FILE Social History Tobacco Use Types Packs/Day Years Used Date Smoking Tobacco: Every Day Cigarettes Alcohol Use Standard Drinks/Week Comments Yes 0 [...] on file Sexual Orientation Not on file documented as of this encounter Plan of Treatment Not on file documented as of this encounter Visit Diagnoses Not on filedocumented in this encounter
--- OUTSIDE RECORDS SUMMARY | 2025-03-31 13:42 | XMS_ITS | Clinical Summary ---
Author Organization [facility] Address [address] [facility] [place] [address] Phone Care Team Providers Care Back Panel Padder Name Role Phone Garrett Cisneros MD Primary Care Provider [phone] Allergies Active Allergy Reactions Criticality Noted Date Comments Dermatological Products, Misc. Rash Low 07/25/2023 Per pt, any type of meds that say they are hypoallergenic break him out in a rash. Medications omeprazole (PriLOSEC) 20 MG CAPSULE DELAYED RELEASE Take 20 mg by mouth daily. Active ALBUTEROL IN take by inhalation as needed. Active Active Problems Problem Noted Date Diagnosed Date Elevated ferritin 01/12/2024 Polycythemia 09/26/2023 Family History Medical History Relation Name Comments Stroke Father Hypertension Mother Relation Name Status Comments Father Mother Social History Tobacco Use Types Packs/Day Years Used Date Smoking Tobacco: Every Day Cigarettes 0.5 21.7 Started: 2003 Smokeless Tobacco: Never Tobacco Cessation:Ready to Q uit: Not Asked; Counseling Given: Not Answered Alcohol Use Standard Drinks/Week Comments Yes 0 (1 standard drink = 0.6 oz pur e alcohol) daily Sex and Gender Information Value Date Recorded Sex Assigned at Not on file Legal Sex Male 11:36 PM CDT Gender Identity Not on file Sexual Orientation Not on file Last Filed Vital Signs Vital Sign Reading Time Taken Comments Blood Pressure 136/96 01/15/2024 9:48 AM CDT Pulse 79 01/15/2024 9:48 AM CDT Temperature 36.7 C (98 F) 01/15/2024 9:16 AM CDT Respiratory Rate 18 01/15/2024 9:16 AM CDT Oxygen Saturation 98% 01/15/2024 9:16 AM CDT Inhaled Oxygen Concentration - - Weight 79.2 kg (174 lb 11.2 oz) 024 10:06 AM CDT Height 179.1 cm (5' 10.5) 01/08/2024 1 0:06 AM CDT Body Mass Index 24.71 01/08/2024 10:06 AM CDT Plan of Treatment Health Maintenance Due Date Last Done Comments Hepatitis C Virus (HCV) Screening 1980 TdaP Immunization 1980 Hepatitis B Immunization (1 of 3 - 19+ 3-dose series) 2000 Pneumococcal Immunization Co mbined (1 of 2 - PCV) 2000 Human Papillomavirus (HPV) Immunization (1 - 3-dose SCDM series) 2008 Influenza Immunization (#1) 2025 SARS-COV-2 Immunization (1 - 2023- season) 2025 Respiratory Syncytial Virus (RSV) Immunization (Adult) (1 - 1-dose 75+ series) 2056 Meningococcal Immunization (ACWY) Aged Out No longer eligible based on patient's age to complete this topic Rotavirus Immunization Aged Out No lo nger eligible based on patient's age to complete this topic Insurance Care Teams Back Panel Padder Relationship Specialty Start Date End Date Garrett Cisneros MD PCP - General Internal Medicine 07/01/23
--- OUTSIDE RECORDS SUMMARY | 2025-03-31 13:42 | XMS_ITS | Encounter Summary ---
Author Organization [facility] Address [address] [place] [address] Care Team Providers Care Bulk Delivery Driver Name Role Phone Unavailable Primary Care Provider [...]
== END 2025-03-31 13:04 | disposition home or self-care (01) ==
PROVIDERS: PCP Internal Medicine
DX: R07.9 Chest pain, unspecified (principal)
CPT/HCPCS: 93306